=== PATIENT | male | born 1955 | race Caucasian/White ===

== ENCOUNTER 2017-09-30 01:17 | Emergency (ER) | payer OTHER ==
[~2017-09-30] VITALS: Ht 182.9 cm; Wt 113.4 kg
[~2017-09-30 01:17] MED LIST: ASPI81EC; CIPR500 PO; CRUTCH USE; IBUP200 PO; IBUP600 PO; LISI20 PO; LISI5; METF500 PO; METO100 PO; NAPR500 PO; NITR.4SL; OXYACE5T PO; PRAV40 PO; RXOXYACE PO; TRADJENTA5 MG PO
[2017-09-30 01:54] LABS: BASOPHILS ABSOLUTE AUTO 0.06 K/mm3 (0.00-0.23); BASOPHILS PERCENT AUTO 0 % (0-2); EOSINOPHILS ABSOLUTE AUTO 0.18 K/mm3 (0.00-0.68); EOSINOPHILS PERCENT AUTO 1 % (0-6); Hematocrit 46.9 % (37.0-53.0); Hemoglobin 16.4 g/dL (13.5-17.5); IMMATURE GRAN ABSOLUTE AUTO 0.05 K/mm3 (0.00-0.10); IMMATURE GRAN PERCENT AUTO 0 % (0-1); LYMPHOCYTES ABSOLUTE AUTO 4.91 K/mm3 (0.84-5.20); LYMPHOCYTES PERCENT AUTO 37 % (21-46); MONOCYTES ABSOLUTE AUTO 0.92 K/mm3 (0.16-1.47); MONOCYTES PERCENT AUTO 7 % (4-13); Mean Corpuscular HGB 29.5 pg (26.0-34.0); Mean Corpuscular Volume 85 fL (80-100); Mean Platelet Volume 11.8 fL (9.1-12.4); NEUTROPHILS ABSOLUTE AUTO 7.34 K/mm3 (1.96-9.15); NEUTROPHILS PERCENT AUTO 55 % (41-73); Platelet Count 237 K/mm3 (150-400); RDW Coefficient Variation 13.9 % (11.7-14.2); RDW Standard Deviation 42.8 fL (35.1-46.3); Red Blood Cell Count 5.55 M/mm3 (4.30-5.90); White Blood Cell Count 13.46 K/mm3 (4.00-11.30)
[2017-09-30 02:08] LABS: Alanine Aminotransfer (ALT/SGP 51 U/L (12-78); Albumin, Blood 3.6 g/dL (3.4-5.0); Albumin/Globulin Ratio 0.8 (0.8-1.8); Alk Phos 76 U/L (50-136); Anion Gap 11 mmol/L (6-16); Aspartate Aminotrans (AST/SGOT 25 U/L (12-37); Bilirubin, Total 0.4 mg/dL (0.1-1.0); Blood Urea Nitrogen 32 mg/dL (8-24); Bun/Creatinine Ratio 24.8 (12.0-20.0); CO2, Blood 23 mmol/L (21-32); Calcium, Blood 9.2 mg/dL (8.5-10.1); Chloride, Blood 94 mmol/L (98-108); Creatinine, Blood 1.29 mg/dL (0.60-1.20); Globulin, Blood 4.3 g/dL (2.2-4.0); Glomerular Filtration Rate 60 (60-); Glucose, Blood 550 mg/dL (70-99); Magnesium, Blood 2.1 mg/dL (1.6-2.4); Potassium, Blood 4.6 mmol/L (3.5-5.5); Sodium, Blood 128 mmol/L (136-145); Total Protein, Blood 7.9 g/dL (6.4-8.2); Troponin I <0.015 ng/mL (0.000-0.040)
[2018-07-04] MEDS ORDERED: Metformin HCl1000 MG PO (04:19)
== END 2017-09-30 05:19 | disposition home or self-care (01) ==
LOC: ER 01:17
PROVIDERS: Emergency Medicine
DX: E11.65 Type 2 diabetes mellitus with hyperglycemia (principal); S00.83XA Contusion of other part of head, initial encounter; Z91.19 Patient's noncompliance with other medical treatment and regimen; R55 Syncope and collapse; E86.0 Dehydration; N28.9 Disorder of kidney and ureter, unspecified; W22.8XXA Striking against or struck by other objects, initial encounter; Z88.0 Allergy status to penicillin; Z88.2 Allergy status to sulfonamides; Z79.84 Long term (current) use of oral hypoglycemic drugs; Z79.899 Other long term (current) drug therapy
CPT/HCPCS: 36415; 70450; 80053; 82947; 83735; 83880; 84484; 85025; 93005; 93010; 96360; 99284; J1815; J7030

== ENCOUNTER 2018-10-17 13:20 | Emergency (ER) | payer OTHER ==
[~2018-10-17] VITALS: Ht 182.9 cm; Wt 113.4 kg
[~2018-10-17 13:20] MED LIST changes: +Metformin HCl1000 MG PO
== END 2018-10-17 14:15 | disposition home or self-care (01) ==
LOC: ER 13:20
DX: S00.03XA Contusion of scalp, initial encounter (principal); W22.8XXA Striking against or struck by other objects, initial encounter; Z88.0 Allergy status to penicillin; Z88.2 Allergy status to sulfonamides; E11.9 Type 2 diabetes mellitus without complications
CPT/HCPCS: 99283

== ENCOUNTER 2020-07-27 13:46 | Emergency (ER) | payer OTHER ==
[~2020-07-27] VITALS: Ht 182.9 cm; Wt 111.1 kg
[2020-07-27 14:22] LABS: BASOPHILS ABSOLUTE AUTO 0.05 K/mm3 (0.00-0.23); BASOPHILS PERCENT AUTO 0 % (0-2); EOSINOPHILS ABSOLUTE AUTO 0.09 K/mm3 (0.00-0.68); EOSINOPHILS PERCENT AUTO 1 % (0-6); Hematocrit 47.8 % (37.0-53.0); IMMATURE GRAN ABSOLUTE AUTO 0.07 K/mm3 (0.00-0.10); IMMATURE GRAN PERCENT AUTO 1 % (0-1); LYMPHOCYTES ABSOLUTE AUTO 2.69 K/mm3 (0.84-5.20); LYMPHOCYTES PERCENT AUTO 20 % (21-46); MONOCYTES ABSOLUTE AUTO 0.74 K/mm3 (0.16-1.47); MONOCYTES PERCENT AUTO 5 % (4-13); Mean Corpuscular HGB 28.8 pg (26.0-34.0); Mean Corpuscular HGB Conc 33.5 g/dL (31.5-36.5); Mean Corpuscular Volume 86 fL (80-100); Mean Platelet Volume 11.9 fL (9.1-12.4); NEUTROPHILS ABSOLUTE AUTO 9.95 K/mm3 (1.96-9.15); NEUTROPHILS PERCENT AUTO 73 % (41-73); Platelet Count 302 K/mm3 (150-400); RDW Standard Deviation 37.7 fL (35.1-46.3); Red Blood Cell Count 5.55 M/mm3 (4.30-5.90); White Blood Cell Count 13.59 K/mm3 (4.00-11.30)
[2020-07-27 14:43] LABS: Alanine Aminotransfer (ALT/SGP 31 U/L (12-78); Albumin/Globulin Ratio 0.6 (0.8-1.8); Alk Phos 78 U/L (50-136); Anion Gap 10 mmol/L (6-16); Aspartate Aminotrans (AST/SGOT 21 U/L (12-37); Bilirubin, Total 0.3 mg/dL (0.1-1.0); Blood Urea Nitrogen 19 mg/dL (8-24); Bun/Creatinine Ratio 15.3 (12.0-20.0); CO2, Blood 22 mmol/L (21-32); Calcium, Blood 8.8 mg/dL (8.5-10.1); Chloride, Blood 98 mmol/L (98-108); Creatinine, Blood 1.24 mg/dL (0.60-1.20); Glomerular Filtration Rate >60 (60-); Glucose, Blood 554 mg/dL (70-99); Potassium, Blood 4.6 mmol/L (3.5-5.5); Sodium, Blood 130 mmol/L (136-145)
[2020-07-27] MEDS ORDERED: Cleocin HCl150 MG PO (15:59)
[2020-07-27] MEDS ORDERED: METF500 PO (15:59)
== END 2020-07-27 16:26 | disposition home or self-care (01) ==
LOC: ER 13:46
PROVIDERS: Physician Assistant
DX: E11.621 Type 2 diabetes mellitus with foot ulcer (principal); L97.519 Non-pressure chronic ulcer of other part of right foot with unspecified severity; Z88.0 Allergy status to penicillin; Z88.2 Allergy status to sulfonamides
CPT/HCPCS: 36415; 80053; 83690; 85025; 99283

== ENCOUNTER 2021-04-10 20:19 | Inpatient (IN) | payer MEDICARE, OTHER ==
[~2021-04-10] VITALS: Ht 188 cm; Wt 107.6 kg
[~2021-04-10 20:19] MED LIST changes: +Cleocin HCl150 MG PO
[2021-04-10 21:00] LABS: BASOPHILS ABSOLUTE AUTO 0.04 K/mm3 (0.00-0.23); BASOPHILS PERCENT AUTO 0 % (0-2); EOSINOPHILS ABSOLUTE AUTO 0.14 K/mm3 (0.00-0.68); EOSINOPHILS PERCENT AUTO 1 % (0-6); Hematocrit 46.3 % (37.0-53.0); Hemoglobin 15.8 g/dL (13.5-17.5); IMMATURE GRAN ABSOLUTE AUTO 0.02 K/mm3 (0.00-0.10); IMMATURE GRAN PERCENT AUTO 0 % (0-1); LYMPHOCYTES ABSOLUTE AUTO 2.94 K/mm3 (0.84-5.20); LYMPHOCYTES PERCENT AUTO 28 % (21-46); MONOCYTES ABSOLUTE AUTO 0.81 K/mm3 (0.16-1.47); MONOCYTES PERCENT AUTO 8 % (4-13); Mean Corpuscular HGB 29.6 pg (26.0-34.0); Mean Corpuscular HGB Conc 34.1 g/dL (31.5-36.5); Mean Corpuscular Volume 87 fL (80-100); Mean Platelet Volume 12.1 fL (9.1-12.4); NEUTROPHILS ABSOLUTE AUTO 6.47 K/mm3 (1.96-9.15); NEUTROPHILS PERCENT AUTO 62 % (41-73); Platelet Count 212 K/mm3 (150-400); RDW Coefficient Variation 13.1 % (11.7-14.2); RDW Standard Deviation 41.1 fL (35.1-46.3); Red Blood Cell Count 5.34 M/mm3 (4.30-5.90); White Blood Cell Count 10.42 K/mm3 (4.00-11.30)
[2021-04-10 21:12] LABS: Prothrombin Time Results 10.8 Sec (9.7-11.5)
[2021-04-10] MEDS ORDERED: NEURONTIN300 MG PO (21:19)
[2021-04-10] MEDS ORDERED: EASY TOUCH (21:20)
[2021-04-10] MEDS ORDERED: FENOFIBRATE145 MG PO (21:20)
[2021-04-10] MEDS ORDERED: ROSUVASTATIN CA10 MG PO (21:20)
[2021-04-10 21:21] LABS: Alanine Aminotransfer (ALT/SGP 32 U/L (12-78); Albumin, Blood 3.3 g/dL (3.4-5.0); Albumin/Globulin Ratio 0.8 (0.8-1.8); Alk Phos 46 U/L (50-136); Anion Gap 8 mmol/L (6-16); Aspartate Aminotrans (AST/SGOT 16 U/L (12-37); Bilirubin, Total 0.4 mg/dL (0.1-1.0); Blood Urea Nitrogen 28 mg/dL (8-24); Bun/Creatinine Ratio 16.7 (12.0-20.0); CO2, Blood 24 mmol/L (21-32); Chloride, Blood 102 mmol/L (98-108); Creatinine, Blood 1.68 mg/dL (0.60-1.20); Ethanol (Alcohol), Blood, Med <3 mg/dL; Globulin, Blood 3.9 g/dL (2.2-4.0); Glomerular Filtration Rate 41 (60-); Glucose, Blood 445 mg/dL (70-99); Potassium, Blood 4.3 mmol/L (3.5-5.5); Sodium, Blood 134 mmol/L (136-145); Total Protein, Blood 7.2 g/dL (6.4-8.2)
[2021-04-10 21:26] LABS: U Amphetamine Screen Not Detected; U Barbituate Screen Not Detected; U Benzodiazapine Screen Not Detected; U Buprenorphine Screen Not Detected; U Cannabinoids Screen Not Detected; U Cocaine Screen Not Detected; U Methadone Screen Not Detected; U Methamphetamine Screen Not Detected; U Opiates Screen Not Detected; U Oxycodone Screen Not Detected; U Phencyclidine Screen Not Detected; U Propoxyphene Screen Not Detected
[2021-04-10] MEDS ORDERED: ASPI81CH PO (21:34)
[2021-04-11 00:33] LABS: CPK Creatine Kinase 97 U/L (39-308); Troponin I <0.015 ng/mL (0.000-0.040)
--- NOTE | 2021-04-11 02:21 | NUR ---
ASSUMED CARE PT ARRIVED AT APPROX 0100. PT WAS LETHARGIC WITH SLOW RESPONSE WITH LITTLE MOVEMENT. VITALS ARE STABLE AND ON 4L NC WITH SATS ABOVE 97%. DRAPER IN PLACE AND DRAINING TO GRAVITY. CALL LIGHT IS WITHIN REACH. CHUCK CONTINUE TO MONITOR.
[2021-04-11 03:08] LABS: Source, Urine Catheter
[2021-04-11 03:11] LABS: Appearance, Urine Clear (Clear); Bilirubin, Urine Neg (Neg); Blood, Urine Neg (Neg); Color, Urine Yellow (P-Yellow); Glucose Qualitative, Urine 4+ (Neg); Ketones, Urine Neg (Neg); Leukocyte Esterase, Urine Neg (Neg); Nitrite, Urine Neg (Neg); Protein, Urine Neg (Neg); Urobilinogen, Urine NORM (Normal)
[2021-04-11 04:38] LABS: Bun/Creatinine Ratio 17.7 (12.0-20.0); Calcium, Blood 9.1 mg/dL (8.5-10.1); Creatinine, Blood 1.47 mg/dL (0.60-1.20); Potassium, Blood 4.2 mmol/L (3.5-5.5)
[2021-04-11 04:51] LABS: Hematocrit 46.7 % (37.0-53.0); Hemoglobin 15.8 g/dL (13.5-17.5); Mean Corpuscular HGB Conc 33.8 g/dL (31.5-36.5); Mean Corpuscular Volume 89 fL (80-100); Mean Platelet Volume 12.2 fL (9.1-12.4); Platelet Count 190 K/mm3 (150-400); RDW Coefficient Variation 13.1 % (11.7-14.2); RDW Standard Deviation 42.5 fL (35.1-46.3); Red Blood Cell Count 5.27 M/mm3 (4.30-5.90); White Blood Cell Count 10.96 K/mm3 (4.00-11.30)
--- NOTE | 2021-04-11 06:35 | NUR ---
SHIFT SUMMARY PT HAS BEEN LETHARGIC WITH LITTLE RESPONSE SINCE ARRIVAL. ED REPORTED AGITATION, COMBATIVNESS AND UNDIRECTIBLE ACTIVITY. AT 0600 PT STATED NAME BUT DID NOT OPEN EYES OR FOLLOW ANY COMMANDS OTHER THAN WHEN ASKED NAME. DRAPER IS IN PLACE AND DRAINING TO GRAVITY. IV FLUIDS INFUSING. VITALS ARE STABLE AND ON 2L NC WITH SATS ABOVE 95%. CALL LIGHT IS WITHIN REACH. BED ALARM ON.
[2021-04-11] MEDS ORDERED: GLIP5 PO (15:10)
--- NOTE | 2021-04-11 17:45 | NUR ---
TRANSFER NOTE ASSUMED CARE OF PATIENT AT APPROX 0700. PT RESPOND TO VERBAL/TACTILE STIMULI, ANBLE TO SAY NAME AND ; UNABLE TO ANSWER OTHER QUESTIONS HE QUICKLY FALLS BACK TO SLEEP. PUPILS R:2, L:3, NO RESPONSE TO LIGHT. RUE MINIMAL MOVEMENT NOTED, WEAK DELAYED SKIN TOGGLER; NO PURPOSEFUL MOVEMENT TO RLE. THIS EVEING PT ALERT, ORIENTED TO PERSON, PLACE AND EVENT; STATES APR 2023 FOR DATE. NO S/SX OF DISTRESS NOTED T/O SHIFT. PT DENIES PAIN, CHEST PAIN, NAUSEA AND DIZZINESS. MRI FORM COMPLETED WITH INFORMATION FROM SON MASON, DAUGHTER MEAGAN AND LIFE PARTNER ANDREA. VSS. NO OTHER ACUTE CHANGES NOTED. REPORT GIVEN TO MAEGAN TRAN ASSUMING CARE OF PATIENT. PT TRANSFERED TO ROOM 353 AT APPROX 1745.
--- NOTE | 2021-04-11 18:05 | NUR ---
SHIFT SUMMARY PT TRANSFERRED TO THIS UNIT FROM PCU ROOM 9. PT AAO TO SELF AND SITUATION, RECEIVED REPORT FROM MAEGAN CUMMINGS. PT TRANSPORTED VIA BED. PATIENT APPEARS LETHARGIC. ABLE TO FOLLOW SIMPLE DIRECTIONS FROM STAFF. NO C/O PAIN OR ANY DISCOMFORT. APPEARS COMFORTABLE IN BED AT THIS TIME. BED AT LOWEST POSITION W/ ALARM ON. CALL LIGHT WITHIN REACH.
--- NOTE | 2021-04-11 22:32 | NUR ---
FAMILY COMMUNICATION *LATE ENTRY* PT ABLE TO GIVE VERBAL PERMISSION TO SPEAK TO JESSICA BRONSON ABOUT HIS CARE & CURRENT HEALTH SITUATION. CALLED JESSICA BRONSON BACK @[phone] & UPDATED HER ON PTS CURRENT STATUS. SHE STATED AMY STARKS & AINSLEY MARINO ARE PTS POA'S.
--- NOTE | 2021-04-12 05:17 | NUR ---
SHIFT SUMMARY AOX4 @BEGINNING OF SHIFT, A LITTLE FORGETFUL THIS AM-UNAWARE SITUATION OR YR. OTHERWISE RESPONDS CORRECTLY TO ALL QUESTIONS. HAS GARBLED SLOW SPEECH. L FACIAL DROOP. REPORTS BLURRY VISION, PUPILS UNEQUAL-R 2MM & L 4MM, PUPILS NON-RESPONSIVE TO LIGHT, SCLERA VERY RED, EYE LIDS RED & SWOLLEN LOOKING. ABLE TO SEE CORRECT COLOR OF GLOVE & HOW MANY FINGERS BEING HELD UP. FOLLOWS DIRECTIONS. EQUAL ENGINEERING SUPPLIES SALES/STRENGTH. REPORTS FEELING VERY TIRED. VSS. TELE AFIB @77. DRAPER PATENT & DRAINING JUDY COLOR URINE. NPO FOR SPEECH EVAL TODAY. CALL LIGHT IN REACH. WCTM.
--- NOTE | 2021-04-12 16:50 | NUR ---
SHIFT SUMMARY PT A&Ox4 THIS SHIFT, FOLLOWS COMMANDS. PT STILL REPORTS BLURRY VISION, PUPILS REMAIN UNEQUAL AND UNRESPONSIVE TO LIGHT, LEAD NUCLEAR MEDICINE TECHNOLOGIST EQAUL BILATERALLY. ABLE TO SWALLOW AND IS TOLERATING PO MEDS AND ORAL INTAKE WELL. NEURO CONSULT CALLED IN, RN SPOKE c PHYSICIAN DIRECTLY. PT IS NOW 2 ASSIST c FWW AND GB PER PT/OT. BARON PATENT AND DRAINING. TELE - AFIB @ 78 c BBB. PT IS CURRENTLY LYING IN BED, CALL LIGHT IN REACH AND BED ALARM ON. CALLS APPROPRIATELY OCCASIONALLY.
--- NOTE | 2021-04-13 00:06 | NUR ---
PATIENT SLEEPING IN BED, EASILY AROUSABLE TO VOICE, INCONTINENT BOWEL EPISODE, DRAPER CATETHER PATENT AND CATHETER CARE PERFORMED, PATIENT IS ALERT TO SELF, PLACE, SITUATION NEGATIVE TO TIME, YEAR "2000", RIGHT EYE PINPOINT FIX, LEFT EYE +2 SLUGGISH WITH NOTED DIFFICULTY KEEPING EYE OPEN, SCALERA REDDENED BILATERALY, GARBLED SPEECH ON FIRST AWAKENING BECAME MORE CLEAR SLURRED WITH WORD FINDING, RIGHT UPPER EXTREMITY WEAKNESS TO PROPERTY OFFICER PUSHES AND PULLS, NO DRIFTS NOTED X 4 EXTREMITIES, ABLE TO FOLLOW COMMANDS WITH A RIGHT SIDED FACIAL DROOP. WILL CONTINUE TO MONITOR.
--- NOTE | 2021-04-13 04:21 | NUR ---
PATIENT EXHIBITING SIGNS OF AGITATION AT TIMES, UNWILLING TO FOLLOW COMMANDS, PATIENT ROLLS TO SIDE TO SIDE, PULLING AT LINES AND DRAPER CATHETER, PULLED OUT PIV WITH LR RUNNING, NOTED SLIGHT INFILTRATION AT THE RFA SITE, MONITORING. NEW PIV INSERTED 20 GAUGE IN LFA, DRAPER CATHETER INTACT, PATENT AND STAT LOCK IN PLACE.
--- NOTE | 2021-04-13 07:12 | NUR ---
PATIENT AROUND 0630 STARTED GETTING VERY RESTLESS PULLING AT HIS TELEMETRY, CALLED CHARGE TO HAVE PATIENT PUT ON DELEON AND REDIRECTING HIM, AFTER CALL BED ALARM CAME ON, PATIENT WAS STANDING AT THE EDGE OF BED FACING DOOR HEAD FORWARD UNSTEADY COMING TOWARDS ME, IV WAS PULLED OUT, DRAPER CATHETER STILL ATTACKED TO BED, PATIENT HAD ONE HAND ON HIS CATHETER PULLING IT, PATIENT REFUSED TO SIT ON BED, PHYSICALLY AGGRESSIVE AND VERBALLY " YOU BITCH, THIS IS BULLSHIT, THIS IS BULLSHIT' I CALLED SECURITY WHILE I WAS HOLDING THE PATIENT BY THE SHOULDERS TO KEEP HIM FROM FALLING FORWARD ONTO FLOOR, YELLED FOR STAFF ASSIST, PATIENT HAS NEW ORDERS TO REMOVE DRAPER, DC LACTAID RINGERS, HAROLDO AND BILATERAL WRIST RESTRAINTS AND NEW ORDERS TO FOLLOW TO HELP WITH AGITATION.
[2021-04-13 08:51] LABS: Anion Gap 7 mmol/L (6-16); Blood Urea Nitrogen 19 mg/dL (8-24); Bun/Creatinine Ratio 16.2 (12.0-20.0); CO2, Blood 25 mmol/L (21-32); Calcium, Blood 9.2 mg/dL (8.5-10.1); Chloride, Blood 104 mmol/L (98-108); Creatinine, Blood 1.17 mg/dL (0.60-1.20); Glomerular Filtration Rate >60 (60-); Glucose, Blood 252 mg/dL (70-99); Potassium, Blood 4.2 mmol/L (3.5-5.5); Sodium, Blood 136 mmol/L (136-145)
--- NOTE | 2021-04-13 18:43 | NUR ---
SHIFT SUMMARY PT OUT OF RESTRAINTS BY 0930 THIS MORNING. HAS BEEN PLEASANT AND COOPERATIVE THROUGHOUT DAY. BED ALARM ON AND HAS GOTTEN OUT OF BED TO USE RESTROOM AND NEEDS REMINDING TO USE CALL BUTTON. 1 PERSON ASSIST WITH AMBULATING USING FWW. S.O. AT BEDSIDE FOR SHORT TIME TODAY.
--- NOTE | 2021-04-13 23:33 | NUR ---
2200 PT LYING IN BED, EYES CLOSED, APPEARS TO BE RESTING. BREATHING IS EVEN, UNLABORED. NO APPARENT SIGNS OF DISTRESS. CALL LIGHT IS IN REACH.
--- NOTE | 2021-04-13 23:33 | NUR ---
1935 PT LYING IN BED, AAO X 4 AT THIS TIME. DENIES ANY DISCOMFORT AT THIS TIME. NO APPARENT SIGNS OF DISTRESS. CALL LIGHT IS IN REACH. BED ALARM IS ON.
--- NOTE | 2021-04-13 23:34 | NUR ---
PT LYING IN BED, EYES CLOSD, APPEARS TO BE RESTING. BREATHING IS EVEN, UNLABORED. NO APPARENT SIGNS OF DISTRESS. CALL LIGHT IS IN REACH.
--- NOTE | 2021-04-14 01:56 | NUR ---
PT LYING IN BED, EYES CLOSED, APPEARS TO BE RESTING. BREATHING IS EVEN, UNLABORED. ON APPARENT SIGNS OF DISTRESS. CALL LIGHT IS IN REACH. BED ALARM IS ON.
--- NOTE | 2021-04-14 03:31 | NUR ---
PT REFUSING TO WEAR TELE MONITOR. SPOKE WITH TECHNOLOGY EDUCATION TEACHER, PT HAS A RATE OF BBB WITH AFIB, NO EVENTS OVER THE LAST 24 HOURS, SPOKE WITH DR TIPTON, OK TO DC TELE. PT IS VERY HAPPY ABOUT THIS. NO OTHER APPARENT SIGNS OF DISTRESS. CALL LIGHT IS IN REACH. BED ALARM IS ON.
--- NOTE | 2021-04-14 03:33 | NUR ---
PT IS AAO X 4, OCC CONF AT NIGHT. ON RA. BS WAS 209, TELE WAS BBB WITH AFIB.
--- NOTE | 2021-04-14 04:51 | NUR ---
SED ALL ITEMS TO BE PUT BACK ON. RN NOTIFIED
--- NOTE | 2021-04-14 05:31 | NUR ---
PT LYING IN BED, EYES CLOSED, APPEARS TO BE RESTING. BREATHING IS EVEN, UNLABORED. NO APPARENT SIGNS OF DISTRESS. CALL LIGHT IS IN REACH. BED ALARM IS ON. NO OTHER CHANGES THIS SHIFT.
[2021-04-14 09:23] LABS: Bun/Creatinine Ratio 16.1 (12.0-20.0); Calcium, Blood 9.3 mg/dL (8.5-10.1); Creatinine, Blood 1.37 mg/dL (0.60-1.20); Potassium, Blood 4.2 mmol/L (3.5-5.5)
--- NOTE | 2021-04-14 19:39 | NUR ---
no iv, call light in reach, asked for treat during bsr, pt has requested to go home instead of snf
--- NOTE | 2021-04-15 03:07 | NUR ---
SHIFT SUMMARY PT DROWSY MOST OF THE SHIFT. STAFF OFFERED ASSISTANCE WITH FOOD, FLUID AND TOILETING, WHICH PT DECLINED. PERIPHERAL PULSES STRONG. PT AMBULATES WITH WALKER AND GAIT BELT. LUNG SOUNDS CLEAR ON ROOM AIR. DENIES HEADACHE OR VISUAL CHANGES. CALL LIGHT WITHIN REACH, WILL CONTINUE TO MONITOR.
--- NOTE | 2021-04-15 04:10 | NUR ---
CORRESPONDENCE WITH PHYSICIAN PLACED PHONE CALL TO DR ODOM TO REQUEST ORDER FOR NO IV ACCESS. PT REMOVED HIS OWN IV ON 04/14/21, HE IS NOT RECEIVING ANY MEDS VIA IV. WILL UPDATE ORDERS.
[2021-04-15] MEDS ORDERED: LISI20 PO (12:10)
[2021-04-15] MEDS ORDERED: XARELTO20 MG PO (12:11)
--- NOTE | 2021-04-15 15:01 | NUR ---
discharged: home with family, warned by pt and staff that this would not be a optimal discharge, dr had caregiver come in to be shown/trained how to help pt transfer and use walker, cg admited to pt that she thought it might be difficult but pt insisted on leaving, staff reiterated challenges, assisted pt to family vehicle, reviewed dc instructions, reminded pt to make an appointment with pcp, they agreed to do so, restated the reasons for the appointment
[2021-05-19] MEDS ORDERED: PROBIOTIC PO (16:13)
== END 2021-04-15 14:55 | disposition home health service (06) | DRG 64 ==
LOC: ER 20:19 → PCU 20:20 → MEDS 04-11 17:53
PROVIDERS: Emergency Medicine; Family Medicine; ADMIT Internal Medicine
DX: I63.10 Cerebral infarction due to embolism of unspecified precerebral artery (principal); G92 Toxic encephalopathy; N17.9 Acute kidney failure, unspecified; G81.91 Hemiplegia, unspecified affecting right dominant side; R29.810 Facial weakness; H53.2 Diplopia; E11.42 Type 2 diabetes mellitus with diabetic polyneuropathy; E78.5 Hyperlipidemia, unspecified; I10 Essential (primary) hypertension; I48.91 Unspecified atrial fibrillation; Z95.2 Presence of prosthetic heart valve; Z79.01 Long term (current) use of anticoagulants; Z98.890 Other specified postprocedural states; Z79.84 Long term (current) use of oral hypoglycemic drugs; Z79.899 Other long term (current) drug therapy; Z88.0 Allergy status to penicillin; Z88.2 Allergy status to sulfonamides; Z79.82 Long term (current) use of aspirin
CPT/HCPCS: 36415; 51702; 70450; 70544; 70551; 71045; 76770; 80048; 80053; 81003; 82550; 82947; 84484; 85025; 85027; 85610; 92526; 92610; 93005; 93010; 93306; 96372; 97110; 97116; 97162; 97165; 97530; 97535; 99285-25; A9270; G0378; G0480; J1650; J7120

== ENCOUNTER 2021-05-17 20:24 | Inpatient (IN) | payer OTHER ==
[~2021-05-17] VITALS: Ht 182.9 cm; Wt 103.9 kg
[~2021-05-17 20:24] MED LIST changes: +ASPI81CH PO; +EASY TOUCH; +FENOFIBRATE145 MG PO; +GLIP5 PO; +NEURONTIN300 MG PO; +ROSUVASTATIN CA10 MG PO; +XARELTO20 MG PO
[2021-05-17] MEDS ORDERED: CELEXA10 MG PO (20:57)
[2021-05-17 21:25] LABS: BASOPHILS ABSOLUTE AUTO 0.03 K/mm3 (0.00-0.23); BASOPHILS PERCENT AUTO 0 % (0-2); EOSINOPHILS PERCENT AUTO 2 % (0-6); Hematocrit 49.1 % (37.0-53.0); Hemoglobin 16.4 g/dL (13.5-17.5); IMMATURE GRAN ABSOLUTE AUTO 0.02 K/mm3 (0.00-0.10); IMMATURE GRAN PERCENT AUTO 0 % (0-1); LYMPHOCYTES ABSOLUTE AUTO 3.47 K/mm3 (0.84-5.20); LYMPHOCYTES PERCENT AUTO 34 % (21-46); MONOCYTES ABSOLUTE AUTO 0.63 K/mm3 (0.16-1.47); MONOCYTES PERCENT AUTO 6 % (4-13); Mean Corpuscular HGB 29.3 pg (26.0-34.0); Mean Corpuscular HGB Conc 33.4 g/dL (31.5-36.5); Mean Corpuscular Volume 88 fL (80-100); NEUTROPHILS ABSOLUTE AUTO 5.91 K/mm3 (1.96-9.15); NEUTROPHILS PERCENT AUTO 58 % (41-73); Platelet Count 169 K/mm3 (150-400); RDW Coefficient Variation 13.3 % (11.7-14.2); Red Blood Cell Count 5.59 M/mm3 (4.30-5.90); White Blood Cell Count 10.26 K/mm3 (4.00-11.30)
[2021-05-17 21:46] LABS: Alanine Aminotransfer (ALT/SGP 42 U/L (12-78); Albumin, Blood 3.3 g/dL (3.4-5.0); Albumin/Globulin Ratio 0.8 (0.8-1.8); Alk Phos 34 U/L (50-136); Anion Gap 4 mmol/L (6-16); Aspartate Aminotrans (AST/SGOT 38 U/L (12-37); Bilirubin, Total 0.4 mg/dL (0.1-1.0); Blood Urea Nitrogen 115 mg/dL (8-24); Bun/Creatinine Ratio 23.8 (12.0-20.0); CO2, Blood 24 mmol/L (21-32); Calcium, Blood 8.9 mg/dL (8.5-10.1); Chloride, Blood 106 mmol/L (98-108); Creatinine, Blood 4.83 mg/dL (0.60-1.20); Globulin, Blood 4.3 g/dL (2.2-4.0); Glomerular Filtration Rate 12 (60-); Glucose, Blood 116 mg/dL (70-99); Potassium, Blood 5.6 mmol/L (3.5-5.5); Sodium, Blood 134 mmol/L (136-145); Total Protein, Blood 7.6 g/dL (6.4-8.2); Troponin I <0.015 ng/mL (0.000-0.040)
[2021-05-18 00:09] LABS: Phosphorus, Blood 4.3 mg/dL (2.5-4.9)
--- NOTE | 2021-05-18 00:35 | NUR ---
REPORT RECEIVED FROM PRAVEENED RN. PT TRANSPORTED TO MEDICAL FLOOR VIA GURNEY, SLIDE TRANSFERRED TO BED WITH ASSIST OF 4 AND SLIDE SHEET. VS OBTAINED, HYPOTENSIVE, OTHER VS WNL. PT A&OX4, PLEASANT AND ANSWERS QUESTIONS APPROPRIATELY. ORIENTED TO ROOM/UNIT. NO OTHER ACUTE NEEDS ASSESSED AT THIS TIME. CALL LIGHT AND POSSESSIONS IN REACH, BED IN LOW AND LOCKED POSITION WITH ALARMS ON.
--- NOTE | 2021-05-18 03:06 | NUR ---
SPOKE TO DR. ROE REGARDING PT'S ONGOING HYPOTENSION AND LETHARGY. ORDERS RECEIVED. CONTINUE TO MONITOR.
[2021-05-18 03:35] LABS: BASOPHILS ABSOLUTE AUTO 0.03 K/mm3 (0.00-0.23); BASOPHILS PERCENT AUTO 0 % (0-2); EOSINOPHILS ABSOLUTE AUTO 0.25 K/mm3 (0.00-0.68); EOSINOPHILS PERCENT AUTO 3 % (0-6); Hematocrit 43.5 % (37.0-53.0); Hemoglobin 14.6 g/dL (13.5-17.5); IMMATURE GRAN ABSOLUTE AUTO 0.02 K/mm3 (0.00-0.10); IMMATURE GRAN PERCENT AUTO 0 % (0-1); LYMPHOCYTES PERCENT AUTO 33 % (21-46); MONOCYTES ABSOLUTE AUTO 0.68 K/mm3 (0.16-1.47); MONOCYTES PERCENT AUTO 7 % (4-13); Mean Corpuscular HGB 29.6 pg (26.0-34.0); Mean Corpuscular HGB Conc 33.6 g/dL (31.5-36.5); Mean Corpuscular Volume 88 fL (80-100); Mean Platelet Volume 12.4 fL (9.1-12.4); NEUTROPHILS ABSOLUTE AUTO 5.33 K/mm3 (1.96-9.15); NEUTROPHILS PERCENT AUTO 57 % (41-73); Platelet Count 131 K/mm3 (150-400); RDW Coefficient Variation 13.3 % (11.7-14.2); RDW Standard Deviation 43.3 fL (35.1-46.3); Red Blood Cell Count 4.93 M/mm3 (4.30-5.90); White Blood Cell Count 9.41 K/mm3 (4.00-11.30)
[2021-05-18 03:53] LABS: Albumin, Blood 2.7 g/dL (3.4-5.0); Albumin/Globulin Ratio 0.8 (0.8-1.8); Bilirubin, Total 0.2 mg/dL (0.1-1.0); Bun/Creatinine Ratio 25.4 (12.0-20.0); Calcium, Blood 8.4 mg/dL (8.5-10.1); Creatinine, Blood 4.1 mg/dL (0.60-1.20); Globulin, Blood 3.4 g/dL (2.2-4.0); Potassium, Blood 4.9 mmol/L (3.5-5.5); Total Protein, Blood 6.1 g/dL (6.4-8.2)
[2021-05-18 04:37] LABS: Source, Urine Catheter
[2021-05-18 04:41] LABS: Bilirubin, Urine Neg (Neg); Blood, Urine 5+ (Neg); Glucose Qualitative, Urine Neg (Neg); Ketones, Urine Neg (Neg); Leukocyte Esterase, Urine 3+ (Neg); Nitrite, Urine Neg (Neg); Protein, Urine 1+ (Neg); Specific Gravity, Urine 1.015 (1.003-1.022); Urobilinogen, Urine NORM (Normal)
[2021-05-18 04:45] LABS: Appearance, Urine Hazy (Clear); Color, Urine Pale Yellow (P-Yellow)
[2021-05-18 04:52] LABS: U Amphetamine Screen Not Detected; U Barbituate Screen Not Detected; U Benzodiazapine Screen Not Detected; U Buprenorphine Screen Not Detected; U Cannabinoids Screen Not Detected; U Cocaine Screen Not Detected; U Methadone Screen Not Detected; U Methamphetamine Screen Not Detected; U Opiates Screen Not Detected; U Oxycodone Screen Not Detected; U Phencyclidine Screen Not Detected; U Propoxyphene Screen Not Detected
[2021-05-18 05:00] LABS: Bacteria Many /hpf; Red Blood Cells, Urine 0-2 /hpf (0-2); Squamous Epithelial Cells Not Seen /hpf (Few); White Blood Cells, Urine TNTC /hpf (0-5)
--- NOTE | 2021-05-18 05:45 | NUR ---
SHIFT SUMMARY PT RESTING COMFORTABLY, IN NAD. APPEARS INCREASINGLY ALERT, OPENS EYES AND CONVERSES SPONTANEOUSLY. VS REVIEWED, BP'S STABLE, OTHER VS WNL. TELE REPORTED FEW OCCASIONS OF HR DROPPING INTO 30'S, PT ASYMPTOMATIC. NO OTHER ACUTE CHANGES OR CONCERNS TO REPORT OVERNIGHT. DENIES NEEDS AT THIS TIME. CALL LIGHT, POSSESSIONS IN REACH, BED IN LOW AND LOCKED POSITION WITH ALARMS ON. WILL REPORT OFF TO ONCOMING RN.
--- NOTE | 2021-05-18 18:42 | NUR ---
PATIENT IS ALERT AND ORIENTED AND COOPERATIVE WITH CARE. RIGHT SIDE DEFICIT. ON RA. NEEDS HELP SETTING UP MEAL TRAYS. NO C/O PAIN. WILL CONTINUE TO MONITOR
--- NOTE | 2021-05-18 19:00 | NUR ---
ASSUMED CARE RECEIVED REPORT FROM MAEGAN SHETTY. PT RESTING, IN NAD. NO ACUTE NEEDS ASSESSED AT THIS TIME. CALL LIGHT, POSSESSIONS IN REACH, BED IN LOW AND LOCKED POSITION. IVF INFUSING ORDERED.
[2021-05-19 05:34] LABS: BASOPHILS ABSOLUTE AUTO 0.02 K/mm3 (0.00-0.23); BASOPHILS PERCENT AUTO 0 % (0-2); EOSINOPHILS PERCENT AUTO 3 % (0-6); Hematocrit 38.5 % (37.0-53.0); Hemoglobin 13.1 g/dL (13.5-17.5); IMMATURE GRAN ABSOLUTE AUTO 0.01 K/mm3 (0.00-0.10); IMMATURE GRAN PERCENT AUTO 0 % (0-1); LYMPHOCYTES PERCENT AUTO 28 % (21-46); MONOCYTES ABSOLUTE AUTO 0.54 K/mm3 (0.16-1.47); MONOCYTES PERCENT AUTO 8 % (4-13); Mean Corpuscular HGB 29.6 pg (26.0-34.0); Mean Corpuscular Volume 87 fL (80-100); Mean Platelet Volume 12.6 fL (9.1-12.4); NEUTROPHILS ABSOLUTE AUTO 4.26 K/mm3 (1.96-9.15); NEUTROPHILS PERCENT AUTO 61 % (41-73); Platelet Count 137 K/mm3 (150-400); RDW Coefficient Variation 13.4 % (11.7-14.2); RDW Standard Deviation 42.8 fL (35.1-46.3); Red Blood Cell Count 4.43 M/mm3 (4.30-5.90); White Blood Cell Count 7.03 K/mm3 (4.00-11.30)
[2021-05-19 06:11] LABS: Albumin, Blood 2.5 g/dL (3.4-5.0); Albumin/Globulin Ratio 0.7 (0.8-1.8); Bilirubin, Total 0.6 mg/dL (0.1-1.0); Bun/Creatinine Ratio 23.7 (12.0-20.0); Calcium, Blood 7.4 mg/dL (8.5-10.1); Creatinine, Blood 2.57 mg/dL (0.60-1.20); Globulin, Blood 3.4 g/dL (2.2-4.0); Potassium, Blood 5.1 mmol/L (3.5-5.5); Total Protein, Blood 5.9 g/dL (6.4-8.2)
--- NOTE | 2021-05-19 07:00 | NUR ---
SHIFT SUMMARY PT RESTING, IN NAD. NO ACUTE CONCERNS TO REPORT OVERNIGHT. VS REVIEWED,WNL. NO CARDIAC EVENTS REPORTED OVERNIGHT. A&OX3, FORGETFUL AT TIMES; CALLS OUT FOR GIRLFRIEND; RE-ORIENTED TO PLACE. APPEARED TO SLEEP WELL OVERNIGHT. NO ACUTE NEEDS ASSESSED AT THIS TIME. CALL LIGHT, POSSESSIONS IN REACH, BED IN LOW AND LOCKED POSITION WITH ALARMS ON. REPORT GIVEN TO MAEGAN SHETTY.
[2021-05-19 12:28] LABS: Bun/Creatinine Ratio 23.2 (12.0-20.0); Calcium, Blood 7.9 mg/dL (8.5-10.1); Creatinine, Blood 2.46 mg/dL (0.60-1.20); Potassium, Blood 5.2 mmol/L (3.5-5.5)
[2021-05-19] MEDS ORDERED: VISBIOME 112.51 EACH PO (16:13)
[2021-05-19] MEDS ORDERED: CEFD300 PO (16:14)
--- NOTE | 2021-05-19 19:12 | NUR ---
PATIENT IS ALERT AND ORIENTED AND COOPERATIVE WITH CARE. RIGHT SIDE DEFICITS. USES THE URINAL. PATIENT HAS A GOOD APPETITE. NO ACUTE CONCERNS TODAY. WILL CONTINUE TO MONITOR
--- NOTE | 2021-05-20 04:12 | NUR ---
SHIFT SUMMARY NO ACUTE CHANGES THIS SHIFT, MEDICATED 1X (TYLENOL) FOR C/O LEG PAIN 05/19, SLEEPING AT REASSESSMENT, NO OTHER C/O ANY KIND, SLEPT T/O THE NIGHT & SLEEPING AT THIS TIME, CALL LIGHT IN REACH, WILL CONT TO MONITOR UNTIL REPORT GIVEN TO DAY RN.
[2021-05-20 05:36] LABS: BASOPHILS ABSOLUTE AUTO 0.03 K/mm3 (0.00-0.23); BASOPHILS PERCENT AUTO 0 % (0-2); EOSINOPHILS ABSOLUTE AUTO 0.27 K/mm3 (0.00-0.68); EOSINOPHILS PERCENT AUTO 4 % (0-6); Hematocrit 41.2 % (37.0-53.0); Hemoglobin 13.9 g/dL (13.5-17.5); IMMATURE GRAN ABSOLUTE AUTO 0.01 K/mm3 (0.00-0.10); IMMATURE GRAN PERCENT AUTO 0 % (0-1); LYMPHOCYTES ABSOLUTE AUTO 2.25 K/mm3 (0.84-5.20); LYMPHOCYTES PERCENT AUTO 30 % (21-46); MONOCYTES ABSOLUTE AUTO 0.62 K/mm3 (0.16-1.47); MONOCYTES PERCENT AUTO 8 % (4-13); Mean Corpuscular HGB 29.6 pg (26.0-34.0); Mean Corpuscular HGB Conc 33.7 g/dL (31.5-36.5); Mean Corpuscular Volume 88 fL (80-100); NEUTROPHILS ABSOLUTE AUTO 4.23 K/mm3 (1.96-9.15); NEUTROPHILS PERCENT AUTO 57 % (41-73); Platelet Count 152 K/mm3 (150-400); RDW Coefficient Variation 13.4 % (11.7-14.2); RDW Standard Deviation 43.2 fL (35.1-46.3); Red Blood Cell Count 4.69 M/mm3 (4.30-5.90); White Blood Cell Count 7.41 K/mm3 (4.00-11.30)
[2021-05-20 06:08] LABS: Bun/Creatinine Ratio 21.2 (12.0-20.0); Calcium, Blood 8.7 mg/dL (8.5-10.1); Creatinine, Blood 2.17 mg/dL (0.60-1.20); Potassium, Blood 5.1 mmol/L (3.5-5.5)
[2021-05-20] MEDS ORDERED: NIFE30ER PO (13:58)
[2021-05-20] MEDS ORDERED: DOCU100 PO (14:01)
--- NOTE | 2021-05-20 15:32 | NUR ---
DC NOTE: PT A/O X 3 ON DISCHARGE. DC INSTRUCTIONS PROVIDED BY KRISSY NOBLES RN. PT ESCORTED TO POV VIA WC BY YURIDIA BURNS. PT BELONGINGS SENT WITH PT.
== END 2021-05-20 15:27 | disposition home health service (06) | DRG 683 ==
LOC: ER 20:24 → ERHOLD 22:58 → MEDS 22:58 → ENPENDDIS 05-19 15:27 → MEDS 05-20 15:27
PROVIDERS: Family Medicine; Internal Medicine; Student in an Organized Health Care Education/Training Program; ADMIT Family Medicine
DX: N17.9 Acute kidney failure, unspecified (principal); N39.0 Urinary tract infection, site not specified; Z66 Do not resuscitate; E87.5 Hyperkalemia; Z86.73 Personal history of transient ischemic attack (TIA), and cerebral infarction without residual deficits; I10 Essential (primary) hypertension; E11.9 Type 2 diabetes mellitus without complications; I48.91 Unspecified atrial fibrillation; E86.0 Dehydration; Z88.2 Allergy status to sulfonamides; Z88.0 Allergy status to penicillin; Z95.2 Presence of prosthetic heart valve; Z79.899 Other long term (current) drug therapy; Z79.84 Long term (current) use of oral hypoglycemic drugs; I95.9 Hypotension, unspecified
CPT/HCPCS: 36415; 71045; 80048; 80053; 81001; 82140; 82947; 83605; 84100; 84484; 85025; 87040; 87086; 93005; 93010; 96360; 96361; 97110; 97161; 97166; 99285-25; A9270; J0696; J3370; J7030; J7050; J7120

== ENCOUNTER → 2021-10-11 | Outpatient (CLI) | payer OTHER ==
[~2021-10-11] MED LIST changes: +CEFD300 PO; +CELEXA10 MG PO; +DOCU100 PO; +NIFE30ER PO; +VISBIOME 112.51 EACH PO
== END | disposition home or self-care (01) ==
LOC: LAB SHORT 16:45
DX: N39.0 Urinary tract infection, site not specified (principal)
CPT/HCPCS: 87086

== ENCOUNTER 2021-11-16 13:18 | Emergency (ER) | payer OTHER ==
[~2021-11-16] VITALS: Ht 180.3 cm; Wt 108.9 kg
[2021-11-16 14:45] LABS: BASOPHILS ABSOLUTE AUTO 0.04 K/mm3 (0.00-0.23); BASOPHILS PERCENT AUTO 0 % (0-2); EOSINOPHILS ABSOLUTE AUTO 0.07 K/mm3 (0.00-0.68); EOSINOPHILS PERCENT AUTO 1 % (0-6); Hematocrit 45.8 % (37.0-53.0); Hemoglobin 15.2 g/dL (13.5-17.5); IMMATURE GRAN ABSOLUTE AUTO 0.03 K/mm3 (0.00-0.10); IMMATURE GRAN PERCENT AUTO 0 % (0-1); LYMPHOCYTES ABSOLUTE AUTO 2.49 K/mm3 (0.84-5.20); LYMPHOCYTES PERCENT AUTO 22 % (21-46); MONOCYTES ABSOLUTE AUTO 0.87 K/mm3 (0.16-1.47); MONOCYTES PERCENT AUTO 8 % (4-13); Mean Corpuscular HGB 29.6 pg (26.0-34.0); Mean Corpuscular HGB Conc 33.2 g/dL (31.5-36.5); Mean Corpuscular Volume 89 fL (80-100); Mean Platelet Volume 11.5 fL (9.1-12.4); NEUTROPHILS ABSOLUTE AUTO 7.67 K/mm3 (1.96-9.15); NEUTROPHILS PERCENT AUTO 69 % (41-73); Platelet Count 261 K/mm3 (150-400); RDW Coefficient Variation 12.7 % (11.7-14.2); RDW Standard Deviation 41.1 fL (35.1-46.3); Red Blood Cell Count 5.13 M/mm3 (4.30-5.90); White Blood Cell Count 11.17 K/mm3 (4.00-11.30)
[2021-11-16 15:03] LABS: Albumin, Blood 3.8 g/dL (3.4-5.0); Albumin/Globulin Ratio 0.8 (0.8-1.8); Bilirubin, Total 0.7 mg/dL (0.1-1.0); Bun/Creatinine Ratio 17.6 (12.0-20.0); Calcium, Blood 9.4 mg/dL (8.5-10.1); Creatinine, Blood 1.31 mg/dL (0.60-1.20); Globulin, Blood 4.8 g/dL (2.2-4.0); Potassium, Blood 4.6 mmol/L (3.5-5.5); Total Protein, Blood 8.6 g/dL (6.4-8.2)
[2021-11-16 15:59] LABS: Source, Urine Clean Catch
[2021-11-16 16:06] LABS: Appearance, Urine Cloudy (Clear); Bilirubin, Urine Neg (Neg); Blood, Urine 4+ (Neg); Color, Urine Yellow (P-Yellow); Glucose Qualitative, Urine 4+ (Neg); Ketones, Urine Neg (Neg); Leukocyte Esterase, Urine 2+ (Neg); Nitrite, Urine Neg (Neg); Protein, Urine 1+ (Neg); Specific Gravity, Urine 1.015 (1.003-1.022); Urobilinogen, Urine NORM (Normal)
[2021-11-16 17:04] LABS: Bacteria Mod /hpf; Hyaline Casts 0-2 /lpf (0-2); Red Blood Cells, Urine TNTC /hpf (0-2); Squamous Epithelial Cells Few /hpf (Few); Transitional Epithelial Cells Rare /hpf (0-Rare); White Blood Cells, Urine TNTC /hpf (0-5); Yeast/Fungi Urine Few /hpf
[2021-11-16] MEDS ORDERED: CEPH500 PO (17:12)
== END 2021-11-16 18:00 | disposition home or self-care (01) ==
LOC: ER 13:18
PROVIDERS: Physician Assistant
DX: N39.0 Urinary tract infection, site not specified (principal); E11.9 Type 2 diabetes mellitus without complications; Z88.0 Allergy status to penicillin; Z88.2 Allergy status to sulfonamides; Z79.899 Other long term (current) drug therapy; W19.XXXA Unspecified fall, initial encounter
CPT/HCPCS: 36415; 70450; 71046; 80053; 81001; 84484; 85025; 87086; 93005; 93010; 99284-25; A9270

== ENCOUNTER → 2021-12-04 | Outpatient (CLI) | payer OTHER ==
[~2021-12-04] MED LIST changes: +CEPH500 PO
== END | disposition home or self-care (01) ==
LOC: LAB 11:45 → LAB SHORT 11:45
DX: N17.0 Acute kidney failure with tubular necrosis (principal); N39.0 Urinary tract infection, site not specified; I95.9 Hypotension, unspecified
CPT/HCPCS: 87077; 87086; 87186

== ENCOUNTER → 2021-12-14 | Outpatient (CLI) | payer OTHER | END | disposition home or self-care (01) | LOC: LAB SHORT 09:30 → LAB 09:30 | DX: R82.998 Other abnormal findings in urine (principal) | CPT/HCPCS: 87086; 87106 ==

== ENCOUNTER 2021-12-21 19:35 | Emergency (ER) | payer OTHER ==
[~2021-12-21] VITALS: Ht 180.3 cm; Wt 113.4 kg
[2021-12-21 20:21] LABS: BASOPHILS ABSOLUTE AUTO 0.03 K/mm3 (0.00-0.23); BASOPHILS PERCENT AUTO 0 % (0-2); EOSINOPHILS ABSOLUTE AUTO 0.16 K/mm3 (0.00-0.68); EOSINOPHILS PERCENT AUTO 2 % (0-6); Hematocrit 45.8 % (37.0-53.0); IMMATURE GRAN ABSOLUTE AUTO 0.03 K/mm3 (0.00-0.10); IMMATURE GRAN PERCENT AUTO 0 % (0-1); LYMPHOCYTES ABSOLUTE AUTO 3.67 K/mm3 (0.84-5.20); LYMPHOCYTES PERCENT AUTO 40 % (21-46); MONOCYTES ABSOLUTE AUTO 0.53 K/mm3 (0.16-1.47); MONOCYTES PERCENT AUTO 6 % (4-13); Mean Corpuscular HGB 29.6 pg (26.0-34.0); Mean Corpuscular HGB Conc 32.8 g/dL (31.5-36.5); Mean Corpuscular Volume 90 fL (80-100); Mean Platelet Volume 11.6 fL (9.1-12.4); NEUTROPHILS PERCENT AUTO 52 % (41-73); Platelet Count 220 K/mm3 (150-400); RDW Coefficient Variation 13.2 % (11.7-14.2); RDW Standard Deviation 43.8 fL (35.1-46.3); Red Blood Cell Count 5.07 M/mm3 (4.30-5.90); White Blood Cell Count 9.22 K/mm3 (4.00-11.30)
[2021-12-21 20:39] LABS: Albumin, Blood 3.4 g/dL (3.4-5.0); Albumin/Globulin Ratio 0.9 (0.8-1.8); Bilirubin, Total 0.2 mg/dL (0.1-1.0); Bun/Creatinine Ratio 17.3 (12.0-20.0); Creatinine, Blood 1.33 mg/dL (0.60-1.20); Globulin, Blood 3.9 g/dL (2.2-4.0); Total Protein, Blood 7.3 g/dL (6.4-8.2)
== END 2021-12-22 00:09 | disposition home or self-care (01) ==
LOC: ER 19:35
PROVIDERS: Emergency Medicine
DX: S09.90XA Unspecified injury of head, initial encounter (principal); Z88.0 Allergy status to penicillin; Z88.2 Allergy status to sulfonamides; E11.9 Type 2 diabetes mellitus without complications; I10 Essential (primary) hypertension; Z79.899 Other long term (current) drug therapy; W18.30XA Fall on same level, unspecified, initial encounter
CPT/HCPCS: 70450; 80053; 85025; 99284-25

== ENCOUNTER → 2022-06-07 | Outpatient (CLI) | payer OTHER | END | disposition home or self-care (01) | LOC: LAB SHORT 12:00 → LAB 12:00 | DX: I95.9 Hypotension, unspecified (principal); N17.9 Acute kidney failure, unspecified; N39.0 Urinary tract infection, site not specified; R30.9 Painful micturition, unspecified | CPT/HCPCS: 87086; 87106 ==

== ENCOUNTER 2022-06-27 13:55 | Emergency (ER) | payer OTHER ==
[~2022-06-27] VITALS: Ht 182.9 cm; Wt 113.4 kg
[2022-06-27 14:52] LABS: Source, Urine Clean Catch
[2022-06-27 15:08] LABS: Appearance, Urine Bloody (Clear); Bilirubin, Urine Neg (Neg); Blood, Urine 4+ (Neg); Color, Urine Red (P-Yellow); Glucose Qualitative, Urine 3+ (Neg); Ketones, Urine 1+ (Neg); Leukocyte Esterase, Urine Neg (Neg); Nitrite, Urine Neg (Neg); Protein, Urine 4+ (Neg); Urobilinogen, Urine NORM (Normal)
[2022-06-27 15:24] LABS: Red Blood Cells, Urine TNTC /hpf (0-2)
[2022-06-27 15:32] LABS: Bacteria Many /hpf; Squamous Epithelial Cells Few /hpf (Few)
== END 2022-06-27 16:22 | disposition home or self-care (01) ==
LOC: ER 13:55
PROVIDERS: Physician Assistant
DX: R31.9 Hematuria, unspecified (principal); I10 Essential (primary) hypertension; E11.9 Type 2 diabetes mellitus without complications; I48.91 Unspecified atrial fibrillation; Z88.0 Allergy status to penicillin; Z88.2 Allergy status to sulfonamides; Z79.899 Other long term (current) drug therapy; Z79.01 Long term (current) use of anticoagulants
CPT/HCPCS: 81001; 87086

== ENCOUNTER 2022-09-26 17:43 | Emergency (ER) | payer OTHER ==
[~2022-09-26] VITALS: Ht 182.9 cm; Wt 108.9 kg
[2022-09-26 18:56] LABS: BASOPHILS ABSOLUTE AUTO 0.06 K/mm3 (0.00-0.23); BASOPHILS PERCENT AUTO 1 % (0-2); EOSINOPHILS ABSOLUTE AUTO 0.18 K/mm3 (0.00-0.68); EOSINOPHILS PERCENT AUTO 1 % (0-6); Hematocrit 48.1 % (37.0-53.0); Hemoglobin 16.5 g/dL (13.5-17.5); IMMATURE GRAN ABSOLUTE AUTO 0.05 K/mm3 (0.00-0.10); IMMATURE GRAN PERCENT AUTO 0 % (0-1); LYMPHOCYTES ABSOLUTE AUTO 4.45 K/mm3 (0.84-5.20); LYMPHOCYTES PERCENT AUTO 34 % (21-46); MONOCYTES ABSOLUTE AUTO 0.77 K/mm3 (0.16-1.47); MONOCYTES PERCENT AUTO 6 % (4-13); Mean Corpuscular HGB 30.5 pg (26.0-34.0); Mean Corpuscular HGB Conc 34.3 g/dL (31.5-36.5); Mean Corpuscular Volume 89 fL (80-100); Mean Platelet Volume 11.4 fL (9.1-12.4); NEUTROPHILS ABSOLUTE AUTO 7.49 K/mm3 (1.96-9.15); NEUTROPHILS PERCENT AUTO 58 % (41-73); Platelet Count 296 K/mm3 (150-400); RDW Coefficient Variation 14.3 % (11.7-14.2); RDW Standard Deviation 45.8 fL (35.1-46.3); Red Blood Cell Count 5.41 M/mm3 (4.30-5.90)
[2022-09-26 19:21] LABS: Albumin, Blood 3.6 g/dL (3.4-5.0); Albumin/Globulin Ratio 0.8 (0.8-1.8); Bilirubin, Total 0.4 mg/dL (0.1-1.0); Bun/Creatinine Ratio 14.8 (12.0-20.0); Calcium, Blood 9.4 mg/dL (8.5-10.1); Creatinine, Blood 1.22 mg/dL (0.60-1.20); Globulin, Blood 4.6 g/dL (2.2-4.0); Potassium, Blood 4.8 mmol/L (3.5-5.5); Total Protein, Blood 8.2 g/dL (6.4-8.2)
== END 2022-09-26 22:27 | disposition left against medical advice (07) ==
LOC: ER 17:43
PROVIDERS: Physician Assistant
DX: R31.9 Hematuria, unspecified (principal); Z79.899 Other long term (current) drug therapy; Z53.21 Procedure and treatment not carried out due to patient leaving prior to being seen by health care provider
CPT/HCPCS: 36415; 80053; 85025; 99282

== ENCOUNTER 2023-01-19 15:20 | Emergency (ER) | payer OTHER ==
[~2023-01-19] VITALS: Ht 182.9 cm; Wt 81.7 kg
[~2023-01-19 15:20] MED LIST changes: +Macrodantin100 MG PO
[2023-01-19 16:13] LABS: Albumin/Globulin Ratio 0.7 (0.8-1.8); Bilirubin, Total 1.3 mg/dL (0.1-1.0); Bun/Creatinine Ratio 20.3 (12.0-20.0); Calcium, Blood 9.2 mg/dL (8.5-10.1); Creatinine, Blood 1.28 mg/dL (0.60-1.20); Globulin, Blood 4.6 g/dL (2.2-4.0); Potassium, Blood 4.2 mmol/L (3.5-5.5); Total Protein, Blood 7.6 g/dL (6.4-8.2)
[2023-01-19 16:18] LABS: BASOPHILS ABSOLUTE AUTO 0.04 K/mm3 (0.00-0.23); BASOPHILS PERCENT AUTO 1 % (0-2); EOSINOPHILS ABSOLUTE AUTO 0.22 K/mm3 (0.00-0.68); EOSINOPHILS PERCENT AUTO 3 % (0-6); Hematocrit 43.1 % (37.0-53.0); Hemoglobin 14.5 g/dL (13.5-17.5); IMMATURE GRAN ABSOLUTE AUTO 0.04 K/mm3 (0.00-0.10); IMMATURE GRAN PERCENT AUTO 1 % (0-1); LYMPHOCYTES ABSOLUTE AUTO 1.79 K/mm3 (0.84-5.20); LYMPHOCYTES PERCENT AUTO 21 % (21-46); MONOCYTES ABSOLUTE AUTO 0.68 K/mm3 (0.16-1.47); MONOCYTES PERCENT AUTO 8 % (4-13); Mean Corpuscular HGB 29.7 pg (26.0-34.0); Mean Corpuscular HGB Conc 33.6 g/dL (31.5-36.5); Mean Corpuscular Volume 88 fL (80-100); Mean Platelet Volume 11.8 fL (9.1-12.4); NEUTROPHILS ABSOLUTE AUTO 5.64 K/mm3 (1.96-9.15); NEUTROPHILS PERCENT AUTO 67 % (41-73); Platelet Count 256 K/mm3 (150-400); RDW Coefficient Variation 12.5 % (11.7-14.2); RDW Standard Deviation 40.6 fL (35.1-46.3); Red Blood Cell Count 4.89 M/mm3 (4.30-5.90); White Blood Cell Count 8.41 K/mm3 (4.00-11.30)
[2023-01-19 16:30] VITALS: BP 125/81
[2023-01-19 17:13] LABS: Source, Urine Voided
[2023-01-19 17:23] LABS: Appearance, Urine Hazy (Clear); Blood, Urine 1+ (Neg); Color, Urine Amber (P-Yellow); Glucose Qualitative, Urine 3+ (Neg); Ketones, Urine 3+ (Neg); Leukocyte Esterase, Urine 1+ (Neg); Nitrite, Urine Neg (Neg); Protein, Urine 2+ (Neg); Urobilinogen, Urine 3+ (Normal)
[2023-01-19 17:26] LABS: Bilirubin, Urine 1+ (Neg)
[2023-01-19 17:34] LABS: Mucus Heavy (0-Heavy)
[2023-01-19 17:37] LABS: Bacteria Many /hpf; Squamous Epithelial Cells Rare /hpf (Few)
[2023-01-19 17:40] LABS: Uric Acid Crystals Mod /hpf
== END 2023-01-19 18:40 | disposition home or self-care (01) ==
LOC: ER 15:20
PROVIDERS: Emergency Medicine
DX: R55 Syncope and collapse (principal); E11.9 Type 2 diabetes mellitus without complications; I10 Essential (primary) hypertension; I48.91 Unspecified atrial fibrillation; Z86.73 Personal history of transient ischemic attack (TIA), and cerebral infarction without residual deficits; Z88.0 Allergy status to penicillin; Z88.2 Allergy status to sulfonamides; Z79.84 Long term (current) use of oral hypoglycemic drugs; Z79.01 Long term (current) use of anticoagulants; Z79.899 Other long term (current) drug therapy; W18.12XA Fall from or off toilet with subsequent striking against object, initial encounter
CPT/HCPCS: 70450; 80053; 81001; 84484; 85025; 87086; 93005; 93010; 96360; 99284-25; J7030

== ENCOUNTER 2024-04-29 10:46 | Emergency (ER) | payer OTHER ==
[~2024-04-29] VITALS: Ht 182.9 cm; Wt 108.9 kg
[~2024-04-29 10:46] MED LIST changes: +ATOR80 PO; -CELEXA10 MG PO; +CELEXA40 M1 PO; +FAMO20 PO; +GLIP10 PO; -GLIP5 PO; +METFORMIN HCL500 M2 PO; +Prinivil10 MG PO; +TAMS.4ER PO; +ZOLP5 PO
[2024-04-29] MEDS ORDERED: NS 1,000 ML IV SCH (11:20)
[2024-04-29 11:44] LABS: Calcium, Blood 8.6 mg/dL (8.5-10.1); Creatinine, Blood 2.85 mg/dL (0.60-1.20); Potassium, Blood 5.6 mmol/L (3.5-5.5)
[2024-04-29 15:57] LABS: Calcium, Ionized (POC) 1.09 mmol/L (1.10-1.46); Chloride (POC) 111 mmol/L (98-108); Creatinine (POC) 2.8 mg/dL (0.8-1.3); Glucose (ISTAT POC) 62 mg/dL (70-99); Hemoglobin (POC) 13.3 g/dL (13.5-17.5); Potassium (POC) 5.1 mmol/L (3.5-5.5); Sodium (POC) 143 mmol/L (135-148); Total CO2 (POC) 22 mmol/L (21-32)
[2024-04-29 17:22] LABS: Source, Urine Clean Catch
[2024-04-29 17:24] LABS: Appearance, Urine Clear (Clear); Bilirubin, Urine Neg (Neg); Blood, Urine 1+ (Neg); Color, Urine Yellow (P-Yellow); Glucose Qualitative, Urine 1+ (Neg); Ketones, Urine Neg (Neg); Leukocyte Esterase, Urine Neg (Neg); Nitrite, Urine Neg (Neg); Protein, Urine Neg (Neg); Urobilinogen, Urine NORM (Normal)
[2024-04-29 17:32] LABS: Granular Casts 0-2 /lpf (0); White Blood Cells, Urine 0-2 /hpf (0-5)
[2024-04-29 17:33] LABS: Bacteria Few /hpf; Squamous Epithelial Cells Not Seen /hpf (Few)
[2024-04-29 18:00] VITALS: BP 160/94
== END 2024-04-29 18:25 | disposition home or self-care (01) ==
LOC: ER 10:46
PROVIDERS: Emergency Medicine
DX: N17.9 Acute kidney failure, unspecified (principal); E87.5 Hyperkalemia; E11.9 Type 2 diabetes mellitus without complications; Z88.2 Allergy status to sulfonamides; Z88.0 Allergy status to penicillin; Z79.899 Other long term (current) drug therapy; Z79.82 Long term (current) use of aspirin
CPT/HCPCS: 76770; 80047; 80048; 81001; 85014; 93005; 93010; 96360; 96361; 99284-25; J7030

== ENCOUNTER 2024-05-09 20:07 | Inpatient (IN) | payer OTHER ==
[~2024-05-09] VITALS: Ht 182.9 cm; Wt 106.0 kg
[2024-05-09 20:26] LABS: BASOPHILS ABSOLUTE AUTO 0.03 K/mm3 (0.00-0.23); BASOPHILS PERCENT AUTO 0 % (0-2); EOSINOPHILS ABSOLUTE AUTO 0.07 K/mm3 (0.00-0.68); EOSINOPHILS PERCENT AUTO 1 % (0-6); Hematocrit 33.7 % (37.0-53.0); IMMATURE GRAN ABSOLUTE AUTO 0.08 K/mm3 (0.00-0.10); IMMATURE GRAN PERCENT AUTO 1 % (0-1); LYMPHOCYTES ABSOLUTE AUTO 2.67 K/mm3 (0.84-5.20); LYMPHOCYTES PERCENT AUTO 19 % (21-46); MONOCYTES ABSOLUTE AUTO 1.28 K/mm3 (0.16-1.47); MONOCYTES PERCENT AUTO 9 % (4-13); Mean Corpuscular HGB 29.3 pg (26.0-34.0); Mean Corpuscular HGB Conc 32.6 g/dL (31.5-36.5); Mean Corpuscular Volume 90 fL (80-100); Mean Platelet Volume 11.7 fL (9.1-12.4); NEUTROPHILS ABSOLUTE AUTO 10.02 K/mm3 (1.96-9.15); NEUTROPHILS PERCENT AUTO 71 % (41-73); Platelet Count 311 K/mm3 (150-400); RDW Coefficient Variation 13.6 % (11.7-14.2); RDW Standard Deviation 45.1 fL (35.1-46.3); Red Blood Cell Count 3.76 M/mm3 (4.30-5.90); White Blood Cell Count 14.15 K/mm3 (4.00-11.30)
[2024-05-09] MEDS ORDERED: CefTRIAXone Sodium 2,000 MG in NS 100 ML IV ONE (20:35)
[2024-05-09 20:44] LABS: Albumin, Blood 2.5 g/dL (3.4-5.0); Albumin/Globulin Ratio 0.5 (0.8-1.8); Bun/Creatinine Ratio 13.5 (12.0-20.0); Calcium, Blood 8.6 mg/dL (8.5-10.1); Creatinine, Blood 2.08 mg/dL (0.60-1.20); Globulin, Blood 4.8 g/dL (2.2-4.0); Potassium, Blood 5.9 mmol/L (3.5-5.5); Total Protein, Blood 7.3 g/dL (6.4-8.2)
[2024-05-09 20:55] LABS: International Normalized Ratio 1.42; Prothrombin Time Results 14.8 Sec (9.7-11.5)
[2024-05-09 21:10] LABS: Influenza A, PCR NEGATIVE (NEGATIVE); Influenza B, PCR NEGATIVE (NEGATIVE); Resp Syncytial Virus, PCR NEGATIVE (NEGATIVE); SARS-Cov-2 (COVID-19) PCR, MMC NEGATIVE (NEGATIVE)
[2024-05-09 23:17] LABS: Source, Urine Clean Catch
[2024-05-09 23:20] LABS: Blood, Urine 1+ (Neg); Glucose Qualitative, Urine 2+ (Neg); Ketones, Urine Neg (Neg); Leukocyte Esterase, Urine 1+ (Neg); Nitrite, Urine Neg (Neg); Protein, Urine 2+ (Neg); Urobilinogen, Urine 3+ (Normal)
[2024-05-09] MEDS ORDERED: NS 1,000 ML IV SCH (23:30)
[2024-05-09] MEDS ORDERED: Acetaminophen 325 MG TABLET PO PRN (23:30)
[2024-05-09 23:33] LABS: Appearance, Urine Hazy (Clear); Bilirubin, Urine 1+ (Neg); Color, Urine Amber (P-Yellow)
[2024-05-09 23:34] LABS: Amorphous Mod (0-Heavy); Bacteria Few /hpf; Red Blood Cells, Urine 0-2 /hpf (0-2); Squamous Epithelial Cells Not Seen /hpf (Few); WBC Cast 0-2 /lpf (0)
[2024-05-09] MEDS ORDERED: Sodium Zirconium Cyclosilicate 10 GM Packet PO ONE (23:50)
[2024-05-10] LABS: Source, Urine Straight Cath
[2024-05-10 00:03] LABS: Blood, Urine 1+ (Neg); Glucose Qualitative, Urine 2+ (Neg); Ketones, Urine Neg (Neg); Leukocyte Esterase, Urine 1+ (Neg); Nitrite, Urine Neg (Neg); Protein, Urine 2+ (Neg); Urobilinogen, Urine 3+ (Normal)
[2024-05-10 00:05] LABS: Appearance, Urine Hazy (Clear); Bilirubin, Urine 1+ (Neg); Color, Urine Amber (P-Yellow)
[2024-05-10 00:10] LABS: Amorphous Mod (0-Heavy); Bacteria Few /hpf; Mucus Light (0-Heavy); Red Blood Cells, Urine 0-2 /hpf (0-2); Squamous Epithelial Cells Rare /hpf (Few); WBC Cast 0-2 /lpf (0)
[2024-05-10 00:50] VITALS: BP 119/74
[2024-05-10 04:13] VITALS: BP 99/70
[2024-05-10 05:56] LABS: Bun/Creatinine Ratio 14.6 (12.0-20.0); Calcium, Blood 8.3 mg/dL (8.5-10.1); Creatinine, Blood 2.13 mg/dL (0.60-1.20); Potassium, Blood 4.3 mmol/L (3.5-5.5)
--- NOTE | 2024-05-10 07:13 | NUR ---
ADMITTED FROM ER IN NO APPARENT DISTRESS. LOKELMA GIVEN FOR HIGH K+ LEVEL AND PT WAS ABLE TO DRINK ALL OF IT. NS STARTED AT 150CC/HR FOR LACTIC ACID LEVEL OF 2.2. PT DOES NOT KNOW THE DOSES OF HIS HOME MEDICATIONS AND HE DID NOT ALLOW ME TO WAKE UP HIS SIGNIFICANT OTHER AT 0200 BUT WE WILL CONTACT HER TODAY. FALL PRECAUTIONS IN PLACE, BED ALARM ON, CALL LIGHT WITHIN REACH.
[2024-05-10 07:21] VITALS: BP 117/71
[2024-05-10 15:29] VITALS: BP 154/90
[2024-05-10] MEDS ORDERED: Insulin Human Lispro 100 Units/ML 3ML Syringe SC SCH (16:30)
--- NOTE | 2024-05-10 17:59 | NUR ---
SHIFT SUMMARY PATIENT WORKING WITH PT THIS SHIFT. ABLE TO TRANSFER TO CHAIR WITH 1 MODERATE ASSIST. RIGHT SIDED WEAKNESS AND GENERAL LEG WEAKNESS. DRAPER D/C IN AM, ABLE TO VOID POST REMOVAL. A/O X4. NO C/O PAIN. RECEIVING IV FLUIDS. CONCERNS REGARDING LUNG SOUNDS MADE TO ROUNDING RESIDENT, NO NEW ORDERS RECEIVED. VSS AND WNL. POOR ORAL INTAKE, ENCOURAGED TO TAKE MORE. CALL LIGHT IN REACH, ABLE TO MAKE NEEDS KNOWN. CARES ONGOING.
[2024-05-10 20:46] VITALS: BP 149/81
[2024-05-10] MEDS ORDERED: CefTRIAXone Sodium 1,000 MG in NS 100 ML IV SCH (21:00)
[2024-05-11 04:50] VITALS: BP 153/87
[2024-05-11 04:54] LABS: BASOPHILS ABSOLUTE AUTO 0.04 K/mm3 (0.00-0.23); BASOPHILS PERCENT AUTO 0 % (0-2); EOSINOPHILS ABSOLUTE AUTO 0.21 K/mm3 (0.00-0.68); EOSINOPHILS PERCENT AUTO 2 % (0-6); Hematocrit 35.4 % (37.0-53.0); Hemoglobin 10.7 g/dL (13.5-17.5); IMMATURE GRAN ABSOLUTE AUTO 0.04 K/mm3 (0.00-0.10); IMMATURE GRAN PERCENT AUTO 0 % (0-1); LYMPHOCYTES ABSOLUTE AUTO 1.85 K/mm3 (0.84-5.20); LYMPHOCYTES PERCENT AUTO 16 % (21-46); MONOCYTES ABSOLUTE AUTO 0.93 K/mm3 (0.16-1.47); MONOCYTES PERCENT AUTO 8 % (4-13); Mean Corpuscular HGB 28.6 pg (26.0-34.0); Mean Corpuscular HGB Conc 30.2 g/dL (31.5-36.5); NEUTROPHILS ABSOLUTE AUTO 8.47 K/mm3 (1.96-9.15); NEUTROPHILS PERCENT AUTO 74 % (41-73); Platelet Count 281 K/mm3 (150-400); RDW Coefficient Variation 13.6 % (11.7-14.2); RDW Standard Deviation 47.8 fL (35.1-46.3); Red Blood Cell Count 3.74 M/mm3 (4.30-5.90); White Blood Cell Count 11.54 K/mm3 (4.00-11.30)
[2024-05-11 04:55] LABS: Mean Corpuscular Volume 95 fL (80-100)
[2024-05-11 05:21] LABS: Bun/Creatinine Ratio 14.6 (12.0-20.0); Calcium, Blood 8.6 mg/dL (8.5-10.1); Creatinine, Blood 1.51 mg/dL (0.60-1.20); Potassium, Blood 4.1 mmol/L (3.5-5.5)
--- NOTE | 2024-05-11 06:25 | NUR ---
SHIFT SUMMARY: Pt is admitted for severe sepsis and is a full code. Is alert and able to make needs known. ADLs have been 1p but did not get out of bed during shift. Denies pain or discomfort when asked.
[2024-05-11 07:44] VITALS: BP 166/98
[2024-05-11] MEDS ORDERED: Acetaminophen325 M1 PO (14:21)
[2024-05-11 14:58] VITALS: BP 190/120
[2024-05-11] MEDS ORDERED: Lisinopril 20 MG Tab PO STA (15:08)
[2024-05-11 15:50] VITALS: BP 124/76
[2024-05-13] MEDS ORDERED: ONDA4ODT MM (09:18)
== END 2024-05-11 16:03 | disposition home health service (06) | DRG 871 ==
LOC: ER 20:07 → MEDS 23:27
PROVIDERS: Family Medicine; Student in an Organized Health Care Education/Training Program; ADMIT Internal Medicine
PROC: 3E03329 Introduction of Other Anti-infective into Peripheral Vein, Percutaneous Approach (ICD-10-PCS; principal; 2024-05-09)
PROC: 0T9B70Z Drainage of Bladder with Drainage Device, Via Natural or Artificial Opening (ICD-10-PCS; 2024-05-09)
DX: A41.9 Sepsis, unspecified organism (principal); G92.8 Other toxic encephalopathy; J96.01 Acute respiratory failure with hypoxia; E87.20 Acidosis, unspecified; R65.20 Severe sepsis without septic shock; I48.91 Unspecified atrial fibrillation; E87.5 Hyperkalemia; N18.30 Chronic kidney disease, stage 3 unspecified; E11.22 Type 2 diabetes mellitus with diabetic chronic kidney disease; I12.9 Hypertensive chronic kidney disease with stage 1 through stage 4 chronic kidney disease, or unspecified chronic kidney disease; R74.01 Elevation of levels of liver transaminase levels; Z86.73 Personal history of transient ischemic attack (TIA), and cerebral infarction without residual deficits; Z98.890 Other specified postprocedural states; Z95.2 Presence of prosthetic heart valve; Z88.0 Allergy status to penicillin; Z88.2 Allergy status to sulfonamides; Z79.899 Other long term (current) drug therapy; Z79.82 Long term (current) use of aspirin; Z79.84 Long term (current) use of oral hypoglycemic drugs; Z79.01 Long term (current) use of anticoagulants; W18.30XA Fall on same level, unspecified, initial encounter
CPT/HCPCS: 0241U; 36415; 51702; 70450; 71046; 72125; 72170; 80048; 80053; 81001; 82140; 82550; 82947; 83605; 84145; 84484; 85025; 85610; 85730; 87086; 93005; 93010; 96365; 97110; 97161; 97530; 99285-25; A9270; J0696; J7030

== ENCOUNTER → 2024-06-17 | Outpatient (CLI) | payer OTHER ==
[~2024-06-17] MED LIST changes: +Acetaminophen325 M1 PO; +ONDA4ODT MM
[2024-06-17 20:18] LABS: Albumin, Blood 3.1 g/dL (3.4-5.0); Anion Gap 12 mmol/L (3-11); Blood Urea Nitrogen 15 mg/dL (8-24); CO2, Blood 25 mmol/L (21-32); Chloride, Blood 106 mmol/L (98-108); Glomerular Filtration Rate 81 (60-); Glucose, Blood 219 mg/dL (70-99); Phosphorus, Blood 2.9 mg/dL (2.5-4.9); Potassium, Blood 3.9 mmol/L (3.5-5.5); Sodium, Blood 139 mmol/L (136-145)
== END ==
LOC: LAB 18:02 → LAB SHORT 18:02
PROVIDERS: Internal Medicine Nephrology
DX: N18.2 Chronic kidney disease, stage 2 (mild) (principal)
CPT/HCPCS: 80069

== ENCOUNTER → 2024-06-30 | Outpatient (CLI) | payer OTHER ==
[2024-06-30 12:54] LABS: Creatinine Urine 92.5 mg/dL (27.00-270.00)
[2024-06-30 12:57] LABS: Microalbumin, Urine Quant. 19.8 mg/L (0.000-20.000)
== END ==
LOC: LAB 08:30 → LAB SHORT 08:30 → LAB FUT 06-22 14:05 → EDSTATUS 06-22 14:05
PROVIDERS: Internal Medicine Nephrology
DX: N18.2 Chronic kidney disease, stage 2 (mild) (principal); D63.1 Anemia in chronic kidney disease; E55.9 Vitamin D deficiency, unspecified; E78.00 Pure hypercholesterolemia, unspecified; R76.9 Abnormal immunological finding in serum, unspecified; R94.6 Abnormal results of thyroid function studies; R94.5 Abnormal results of liver function studies; N25.81 Secondary hyperparathyroidism of renal origin
CPT/HCPCS: 81050; 82043; 82570; 84156

== ENCOUNTER 2024-10-10 04:54 | Emergency (ER) | payer OTHER ==
[~2024-10-10] VITALS: Ht 182.9 cm; Wt 108.9 kg
[2024-10-10 05:21] LABS: CORONAVIRUS COVID-19 AG Negative (NEGATIVE); INFLUENZA A AG Positive (NEGATIVE); INFLUENZA B AG Negative (NEGATIVE)
[2024-10-10 05:23] LABS: BASOPHILS ABSOLUTE AUTO 0.04 K/mm3 (0.00-0.23); BASOPHILS PERCENT AUTO 0 % (0-2); EOSINOPHILS ABSOLUTE AUTO 0.05 K/mm3 (0.00-0.68); EOSINOPHILS PERCENT AUTO 1 % (0-6); Hematocrit 36.7 % (37.0-53.0); Hemoglobin 12.1 g/dL (13.5-17.5); IMMATURE GRAN ABSOLUTE AUTO 0.05 K/mm3 (0.00-0.10); IMMATURE GRAN PERCENT AUTO 1 % (0-1); LYMPHOCYTES ABSOLUTE AUTO 1.68 K/mm3 (0.84-5.20); LYMPHOCYTES PERCENT AUTO 17 % (21-46); MONOCYTES ABSOLUTE AUTO 1.08 K/mm3 (0.16-1.47); MONOCYTES PERCENT AUTO 11 % (4-13); Mean Corpuscular HGB 29.2 pg (26.0-34.0); Mean Corpuscular Volume 89 fL (80-100); NEUTROPHILS ABSOLUTE AUTO 6.86 K/mm3 (1.96-9.15); NEUTROPHILS PERCENT AUTO 70 % (41-73); Platelet Count 206 K/mm3 (150-400); RDW Coefficient Variation 13.8 % (11.7-14.2); RDW Standard Deviation 44.8 fL (35.1-46.3); Red Blood Cell Count 4.14 M/mm3 (4.30-5.90); White Blood Cell Count 9.76 K/mm3 (4.00-11.30)
[2024-10-10 05:33] LABS: Albumin, Blood 2.7 g/dL (3.4-5.0); Albumin/Globulin Ratio 0.8 (0.8-1.8); Bilirubin, Total 0.3 mg/dL (0.1-1.0); Bun/Creatinine Ratio 18.8 (12.0-20.0); Calcium, Blood 8.1 mg/dL (8.5-10.1); Creatinine, Blood 1.49 mg/dL (0.60-1.20); Globulin, Blood 3.5 g/dL (2.2-4.0); Potassium, Blood 4.5 mmol/L (3.5-5.5); Total Protein, Blood 6.2 g/dL (6.4-8.2)
[2024-10-10 06:10] LABS: Source, Urine Straight Cath
[2024-10-10 06:26] LABS: Appearance, Urine Clear (Clear); Bilirubin, Urine Neg (Neg); Blood, Urine 5+ (Neg); Color, Urine Yellow (P-Yellow); Glucose Qualitative, Urine 1+ (Neg); Ketones, Urine Neg (Neg); Leukocyte Esterase, Urine Neg (Neg); Nitrite, Urine Neg (Neg); Protein, Urine 2+ (Neg); Urobilinogen, Urine 1+ (Normal)
[2024-10-10 06:35] LABS: Bacteria Few /hpf; Red Blood Cells, Urine 25-50 /hpf (0-2); Squamous Epithelial Cells Few /hpf (Few); White Blood Cells, Urine 0-2 /hpf (0-5)
[2024-10-10] MEDS ORDERED: NS 1,000 ML IV SCH (06:35)
[2024-10-10 06:39] LABS: Hyaline Casts 0-2 /lpf (0-2)
[2024-10-10 09:50] VITALS: BP 128/74
== END 2024-10-10 09:51 | disposition home or self-care (01) ==
LOC: ER 04:54
PROVIDERS: Emergency Medicine
DX: J10.1 Influenza due to other identified influenza virus with other respiratory manifestations (principal); I12.9 Hypertensive chronic kidney disease with stage 1 through stage 4 chronic kidney disease, or unspecified chronic kidney disease; N18.30 Chronic kidney disease, stage 3 unspecified; I48.91 Unspecified atrial fibrillation; E11.9 Type 2 diabetes mellitus without complications; E78.5 Hyperlipidemia, unspecified; Z86.73 Personal history of transient ischemic attack (TIA), and cerebral infarction without residual deficits; Z79.82 Long term (current) use of aspirin; Z79.84 Long term (current) use of oral hypoglycemic drugs; Z79.899 Other long term (current) drug therapy; Z88.0 Allergy status to penicillin; Z88.2 Allergy status to sulfonamides
CPT/HCPCS: 71045; 80053; 81001; 85025; 87428-QW; 96360; 99285-25; J7030

== ENCOUNTER 2024-10-20 10:57 | Emergency (ER) | payer OTHER ==
[~2024-10-20] VITALS: Ht 182.9 cm; Wt 108.9 kg
[2024-10-20] MEDS ORDERED: TRAZ50 PO (11:16)
[2024-10-20] MEDS ORDERED: BENZ100A PO (11:16)
[2024-10-20] MEDS ORDERED: NS 1,000 ML BAG IR ONE (11:55)
[2024-10-20] MEDS ORDERED: NS 1,000 ML IV ONE (12:00)
[2024-10-20 12:25] LABS: BASOPHILS ABSOLUTE AUTO 0.03 K/mm3 (0.00-0.23); BASOPHILS PERCENT AUTO 0 % (0-2); EOSINOPHILS ABSOLUTE AUTO 0.05 K/mm3 (0.00-0.68); EOSINOPHILS PERCENT AUTO 0 % (0-6); Hematocrit 44.4 % (37.0-53.0); Hemoglobin 14.8 g/dL (13.5-17.5); IMMATURE GRAN ABSOLUTE AUTO 0.14 K/mm3 (0.00-0.10); IMMATURE GRAN PERCENT AUTO 1 % (0-1); LYMPHOCYTES ABSOLUTE AUTO 1.34 K/mm3 (0.84-5.20); LYMPHOCYTES PERCENT AUTO 12 % (21-46); MONOCYTES ABSOLUTE AUTO 0.92 K/mm3 (0.16-1.47); MONOCYTES PERCENT AUTO 8 % (4-13); Mean Corpuscular HGB 28.8 pg (26.0-34.0); Mean Corpuscular HGB Conc 33.3 g/dL (31.5-36.5); Mean Corpuscular Volume 86 fL (80-100); Mean Platelet Volume 11.2 fL (9.1-12.4); NEUTROPHILS ABSOLUTE AUTO 8.98 K/mm3 (1.96-9.15); NEUTROPHILS PERCENT AUTO 78 % (41-73); Platelet Count 458 K/mm3 (150-400); RDW Coefficient Variation 13.6 % (11.7-14.2); RDW Standard Deviation 43.3 fL (35.1-46.3); Red Blood Cell Count 5.14 M/mm3 (4.30-5.90); White Blood Cell Count 11.46 K/mm3 (4.00-11.30)
[2024-10-20 12:44] LABS: Albumin, Blood 3.4 g/dL (3.4-5.0); Albumin/Globulin Ratio 0.6 (0.8-1.8); Bun/Creatinine Ratio 42.3 (12.0-20.0); Calcium, Blood 9.9 mg/dL (8.5-10.1); Creatinine, Blood 1.3 mg/dL (0.60-1.20); Globulin, Blood 5.6 g/dL (2.2-4.0); Potassium, Blood 4.9 mmol/L (3.5-5.5)
[2024-10-20 13:38] LABS: Base Excess Venous -8.3 mmol/L; Bicarbonate Venous 18.8 mmol/L (24.0-30.0); PCO2 Venous 30.6 mmHg (38-42); pH Blood Venous 7.36 (7.34-7.37)
[2024-10-20 13:54] LABS: CORONAVIRUS COVID-19 AG Negative (NEGATIVE); INFLUENZA A AG Negative (NEGATIVE); INFLUENZA B AG Negative (NEGATIVE)
[2024-10-20] MEDS ORDERED: Lactated Ringer's 1,000 ML IV SCH (15:05)
[2024-10-20 18:03] VITALS: BP 148/74
== END 2024-10-20 18:43 | disposition home or self-care (01) ==
LOC: ER 10:57
PROVIDERS: Emergency Medicine; Family Medicine
DX: E86.0 Dehydration (principal); R53.1 Weakness; I69.354 Hemiplegia and hemiparesis following cerebral infarction affecting left non-dominant side; I12.9 Hypertensive chronic kidney disease with stage 1 through stage 4 chronic kidney disease, or unspecified chronic kidney disease; E11.22 Type 2 diabetes mellitus with diabetic chronic kidney disease; N18.9 Chronic kidney disease, unspecified; I48.91 Unspecified atrial fibrillation; Z95.1 Presence of aortocoronary bypass graft; Z95.3 Presence of xenogenic heart valve; Z99.3 Dependence on wheelchair; Z88.0 Allergy status to penicillin; Z88.2 Allergy status to sulfonamides; Z79.82 Long term (current) use of aspirin; Z79.01 Long term (current) use of anticoagulants; Z79.84 Long term (current) use of oral hypoglycemic drugs; Z79.899 Other long term (current) drug therapy
CPT/HCPCS: 71046; 80053; 82010; 82803; 83880; 84484; 85025; 87428-QW; 93005; 93010; 96360; 96361; 99285-25; J7030; J7120

== ENCOUNTER → 2025-04-08 | Outpatient (CLI) | payer OTHER ==
[~2025-04-08] MED LIST changes: +BENZ100A PO; +TRAZ50 PO
[2025-04-08 15:45] LABS: Source, Urine Clean Catch
[2025-04-08 18:44] LABS: Bilirubin, Urine Neg (Neg); Color, Urine Yellow (P-Yellow); Glucose Qualitative, Urine Neg (Neg); Ketones, Urine Neg (Neg); Leukocyte Esterase, Urine 3+ (Neg); Protein, Urine 2+ (Neg); Specific Gravity, Urine 1.010 (1.003-1.022); Urobilinogen, Urine NORM (Normal)
[2025-04-08 20:09] LABS: Red Blood Cells, Urine 25-50 /hpf (0-2); White Blood Cells, Urine TNTC /hpf (0-5)
== END | disposition home or self-care (01) ==
LOC: LAB 08:00 → LAB SHORT 08:00
PROVIDERS: Nurse Practitioner Family
DX: N39.0 Urinary tract infection, site not specified (principal)
CPT/HCPCS: 81001; 87086

== ENCOUNTER → 2025-07-13 | Outpatient (CLI) | payer OTHER ==
[2025-07-13 13:07] LABS: Bilirubin, Urine Neg (Neg); Color, Urine Yellow (P-Yellow); Glucose Qualitative, Urine Neg (Neg); Ketones, Urine Neg (Neg); Leukocyte Esterase, Urine 3+ (Neg); Protein, Urine 2+ (Neg); Specific Gravity, Urine 1.005 (1.003-1.022); Urobilinogen, Urine NORM (Normal)
[2025-07-13 13:25] LABS: White Blood Cells, Urine TNTC /hpf (0-5)
== END ==
LOC: LAB 11:57 → LAB SHORT 11:57
PROVIDERS: Nurse Practitioner Family
DX: N39.0 Urinary tract infection, site not specified (principal)
CPT/HCPCS: 81001; 87077; 87086; 87186

== ENCOUNTER → 2025-08-03 | Outpatient (CLI) | payer OTHER ==
[~2025-08-03] MED LIST changes: +ADRENALIN1 MG/1 M1 IM; +AMOCLA875 PO; +BENADRYL25 MG PO; +CALASOOTHE 0.4113 GM TOP; +GABA300 PO; +LOKELMA10 GM PO; +SERT100 PO; +SODBIC650 PO; +VSL#3 112.5B1 EACH PO
== END | disposition home or self-care (01) ==
LOC: LAB SHORT 17:35 → LAB 17:35
DX: N39.0 Urinary tract infection, site not specified (principal)
CPT/HCPCS: 87077; 87086; 87186

== ENCOUNTER 2025-08-06 19:37 | Inpatient (IN) | payer OTHER ==
[~2025-08-06] VITALS: Ht 182.9 cm; Wt 106.4 kg
[~2025-08-06 19:37] MED LIST changes: -ADRENALIN1 MG/1 M1 IM; -AMOCLA875 PO; -BENADRYL25 MG PO; -CALASOOTHE 0.4113 GM TOP; -GABA300 PO; -LOKELMA10 GM PO; -SERT100 PO; -SODBIC650 PO; -VSL#3 112.5B1 EACH PO
[2025-08-06 20:00] LABS: BASOPHILS ABSOLUTE AUTO 0.02 K/mm3 (0.00-0.23); BASOPHILS PERCENT AUTO 0 % (0-2); EOSINOPHILS ABSOLUTE AUTO 0.11 K/mm3 (0.00-0.68); EOSINOPHILS PERCENT AUTO 1 % (0-6); Hematocrit 34.1 % (37.0-53.0); Hemoglobin 10.4 g/dL (13.5-17.5); IMMATURE GRAN ABSOLUTE AUTO 0.05 K/mm3 (0.00-0.10); IMMATURE GRAN PERCENT AUTO 0 % (0-1); LYMPHOCYTES ABSOLUTE AUTO 1.69 K/mm3 (0.84-5.20); LYMPHOCYTES PERCENT AUTO 12 % (21-46); MONOCYTES ABSOLUTE AUTO 1.04 K/mm3 (0.16-1.47); MONOCYTES PERCENT AUTO 8 % (4-13); Mean Corpuscular HGB Conc 30.5 g/dL (31.5-36.5); Mean Corpuscular Volume 90 fL (80-100); NEUTROPHILS ABSOLUTE AUTO 10.83 K/mm3 (1.96-9.15); NEUTROPHILS PERCENT AUTO 79 % (41-73); NRBC ABSOLUTE 0.00 K/mm3 (0.00-0.02); NRBC Auto 0.0 /100 WBC (0.0-0.2); Platelet Count 244 K/mm3 (150-400); RDW Coefficient Variation 14.6 % (11.7-14.2); RDW Standard Deviation 48.6 fL (35.1-46.3)
[2025-08-06] MEDS ORDERED: CALASOOTHE 0.4113 GM TOP (20:03)
[2025-08-06] MEDS ORDERED: CEPH500 PO (20:04)
[2025-08-06] MEDS ORDERED: GABA300 PO (20:05)
[2025-08-06] MEDS ORDERED: SERT100 PO (20:07)
[2025-08-06] MEDS ORDERED: SODBIC650 PO (20:08)
[2025-08-06 20:13] LABS: Alanine Aminotransfer (ALT/SGP 33.0 U/L (12-78); Albumin, Blood 2.7 g/dL (3.4-5.0); Albumin/Globulin Ratio 0.7 (0.8-1.8); Anion Gap 10.0 mmol/L (3-11); Aspartate Aminotrans (AST/SGOT 36.0 U/L (12-37); Bilirubin, Total 0.6 mg/dL (0.1-1.0); Blood Urea Nitrogen 47.0 mg/dL (8-24); CO2, Blood 24.0 mmol/L (21-32); Calcium, Blood 8.0 mg/dL (8.5-10.1); Chloride, Blood 105.0 mmol/L (98-108); Creatinine, Blood 3.36 mg/dL (0.60-1.20); Globulin, Blood 4.1 g/dL (2.2-4.0); Glucose, Blood 174.0 mg/dL (70-99); Potassium, Blood 4.6 mmol/L (3.5-5.5); Sodium, Blood 134.0 mmol/L (136-145); Total Protein, Blood 6.8 g/dL (6.4-8.2)
[2025-08-06 20:18] LABS: Source, Urine Clean Catch
[2025-08-06 20:25] LABS: Color, Urine Brown (P-Yellow); Glucose Qualitative, Urine Neg (Neg); Ketones, Urine 1+ (Neg); Leukocyte Esterase, Urine 3+ (Neg); Protein, Urine 4+ (Neg); Specific Gravity, Urine 1.020 (1.003-1.022); Urobilinogen, Urine 1+ (Normal)
[2025-08-06 20:30] LABS: Bilirubin, Urine 1+ (Neg)
[2025-08-06 20:35] LABS: Red Blood Cells, Urine 50-100 /hpf (0-2); White Blood Cells, Urine TNTC /hpf (0-5)
[2025-08-06] MEDS ORDERED: CefTRIAXone Sodium 1,000 MG in NS 100 ML IV ONE (20:55)
[2025-08-06] MEDS ORDERED: NS 1,000 ML IV SCH (22:25)
[2025-08-06] MEDS ORDERED: FLU VACC TS2025(65UP)/MF59C/PF 45 MCG/0.5 ML SYRINGE IM SCH (22:25)
[2025-08-06] MEDS ORDERED: Ondansetron HCl 2 MG / ML 2ML Vial IV PRN (22:30)
[2025-08-06] MEDS ORDERED: LOKELMA10 GM PO (22:50)
[2025-08-06 22:59] LABS: Prothrombin Time Results 14.8 Sec (9.7-11.5)
[2025-08-06 23:00] VITALS: BP 135/74
[2025-08-06] MEDS ORDERED: Heparin Sodium,Porcine 5,000 UNIT/0.5 ML SDV SC SCH (23:00)
[2025-08-07] VITALS (14 sets, daily range): BP systolic 98–174; BP diastolic 66–93
[2025-08-07 05:34] LABS: BASOPHILS ABSOLUTE AUTO 0.03 K/mm3 (0.00-0.23); BASOPHILS PERCENT AUTO 0 % (0-2); EOSINOPHILS ABSOLUTE AUTO 0.14 K/mm3 (0.00-0.68); EOSINOPHILS PERCENT AUTO 1 % (0-6); Hematocrit 33.2 % (37.0-53.0); Hemoglobin 10.5 g/dL (13.5-17.5); IMMATURE GRAN ABSOLUTE AUTO 0.07 K/mm3 (0.00-0.10); IMMATURE GRAN PERCENT AUTO 1 % (0-1); LYMPHOCYTES ABSOLUTE AUTO 1.61 K/mm3 (0.84-5.20); LYMPHOCYTES PERCENT AUTO 12 % (21-46); MONOCYTES ABSOLUTE AUTO 1.00 K/mm3 (0.16-1.47); MONOCYTES PERCENT AUTO 8 % (4-13); Mean Corpuscular HGB Conc 31.6 g/dL (31.5-36.5); Mean Corpuscular Volume 88 fL (80-100); NEUTROPHILS ABSOLUTE AUTO 10.43 K/mm3 (1.96-9.15); NEUTROPHILS PERCENT AUTO 79 % (41-73); NRBC ABSOLUTE 0.00 K/mm3 (0.00-0.02); NRBC Auto 0.0 /100 WBC (0.0-0.2); Platelet Count 258 K/mm3 (150-400); RDW Coefficient Variation 14.7 % (11.7-14.2); RDW Standard Deviation 48.0 fL (35.1-46.3)
--- NOTE | 2025-08-07 06:04 | NUR ---
SHIFT SUMMARY ADMIT 08/06 IN EVENING FOR UROSEPSIS AFTER SYNCOPAL EPISODE ON TOILET AT RESIDENCE, [facility]. PT REPORTS BEING WHEELCHAIR-BOUND, ABLE TO STAND/PIVOT WITH 2 PERSON ASSIST AT BASELINE. WEARS DEPENDS FOR INCONTINENCE OF BOWEL & BLADDER, DOES ALSO UTILIZE URINAL AT BEDSIDE WITH CONTINUED DARK RED-BROWN URINE OUTPUT. PT EXPERIENCING DYSURIA. FAILED 5 DAYS OUTPT KEFLEX PRIOR TO ADMIT. NS IN LFA 20G IV AT 100 ML/HR. DID RECEIVE 500 CC IVF, 4 MG ZOFRAN, AND ROCEPHIN IN ED PRIOR TO ADMIT. DE-SATTING ON BASELINE RA, PLACED ON 2L NC WITH EUPNEA WHILE SLEEPING. DOES SLEEP WITH HOB >30 DEG, SUSPECT ORTHOPNEA. ANTICOAG IS HELD, PT IS GIVEN SC HEPARIN. A&OX3-4, SITUATIONALLY REDIRECTABLE. AC/HS CBGs FOR ORAL ANTIDIABETIC-CONTROLLED DM2. SLEPT WELL. PLAN FOR PT/ST/CM/PALLIATIVE TODAY.
[2025-08-07 06:08] LABS: Alanine Aminotransfer (ALT/SGP 32.0 U/L (12-78); Albumin, Blood 2.6 g/dL (3.4-5.0); Albumin/Globulin Ratio 0.6 (0.8-1.8); Anion Gap 10.0 mmol/L (3-11); Aspartate Aminotrans (AST/SGOT 32.0 U/L (12-37); Bilirubin, Total 0.5 mg/dL (0.1-1.0); Blood Urea Nitrogen 50.0 mg/dL (8-24); CO2, Blood 26.0 mmol/L (21-32); Calcium, Blood 8.2 mg/dL (8.5-10.1); Chloride, Blood 104.0 mmol/L (98-108); Creatinine, Blood 3.05 mg/dL (0.60-1.20); Globulin, Blood 4.1 g/dL (2.2-4.0); Glucose, Blood 109.0 mg/dL (70-99); Potassium, Blood 4.5 mmol/L (3.5-5.5); Sodium, Blood 135.0 mmol/L (136-145); Total Protein, Blood 6.7 g/dL (6.4-8.2)
[2025-08-07] MEDS ORDERED: Insulin Human Lispro 100 Units/ML 3ML Syringe SC SCH (07:30)
--- NOTE | 2025-08-07 11:49 | NUR ---
RN NOTE MR STARKS HAS BEEN UP TO THE CHAIR THIS MORNING WITH PT, BACK INTO BED FOR RENAL ULTRASOUND. ORIENTATED TO SELF, PLACE, SITUATION, MONTH/NOT YEAR. O2 SATS IN THE 90S ON ROOM AIR, NO LONGER ON OXYGEN NC. TELE SR,1ST DEGREE AVB, BBB. NO CALLS FROM CAKE TESTER. MR STARKS HAS MILD DYSURIA OTHERWISE DESCRIBES FEELING COMFORTABLE.
[2025-08-07] MEDS ORDERED: EpiNEPhrine 1 MG/1 ML 1ML Vial IM PRN (12:05)
[2025-08-07] MEDS ORDERED: DiphenhydrAMINE HCl 50 MG/ML 1ML Vial IV PRN (12:35)
--- NOTE | 2025-08-07 15:50 | NUR ---
Shift Summary. Mr Fong is orientated to self, place, situation, month not year. Renal ultrasound done this morning with low volume in bladder. Voiding small volumes at a time of sangeetha urine. Up to chair for breakfast and for lunch, 1 person assist to pivot to the chair and two person assist to boost up in bed. On telemetry SR, 1st degree AVB, BBB, no calls from television production assistant. PCN trial done, given amoxacilin PO at 1230. Monitored closely for 2 hours, frequent VS done. He denied any new symtoms of allergy or respiratory difficulty on room air. In bed now, bed low, call light in reach.
[2025-08-08] MEDS ORDERED: Ampicillin Sod/Sulbactam Sod 1.5 GM in NS 100 ML IV SCH
[2025-08-08 00:02] VITALS: BP 139/79
[2025-08-08] MEDS ORDERED: NS 250 ML IV PRN (00:15)
--- NOTE | 2025-08-08 03:44 | NUR ---
SHIFT SUMMARY: PT IS AOX2-3. PT EDUCATED ON NOT MAKING SEXUALLY INAPPROPIATE JOKES TOWARDS OR ABOUT STAFF. PT PULLED IV OUT. ATTEMPTED TO PLACE NEW ONE. CHARGE NOTIFIED TO ATTEMPT TO PLACE ONE. PT USES URNIAL WITH AST. BED ALARM SET AND PT REPOSITIONED Q2-Q3. CALL LIGHT IN REACH
[2025-08-08 03:52] VITALS: BP 156/89
[2025-08-08 06:06] LABS: BASOPHILS ABSOLUTE AUTO 0.03 K/mm3 (0.00-0.23); BASOPHILS PERCENT AUTO 0 % (0-2); EOSINOPHILS ABSOLUTE AUTO 0.19 K/mm3 (0.00-0.68); EOSINOPHILS PERCENT AUTO 2 % (0-6); Hematocrit 33.3 % (37.0-53.0); Hemoglobin 10.4 g/dL (13.5-17.5); IMMATURE GRAN ABSOLUTE AUTO 0.03 K/mm3 (0.00-0.10); IMMATURE GRAN PERCENT AUTO 0 % (0-1); LYMPHOCYTES ABSOLUTE AUTO 1.37 K/mm3 (0.84-5.20); LYMPHOCYTES PERCENT AUTO 14 % (21-46); MONOCYTES ABSOLUTE AUTO 0.93 K/mm3 (0.16-1.47); MONOCYTES PERCENT AUTO 9 % (4-13); Mean Corpuscular HGB Conc 31.2 g/dL (31.5-36.5); Mean Corpuscular Volume 88 fL (80-100); NEUTROPHILS ABSOLUTE AUTO 7.59 K/mm3 (1.96-9.15); NEUTROPHILS PERCENT AUTO 75 % (41-73); NRBC ABSOLUTE 0.00 K/mm3 (0.00-0.02); NRBC Auto 0.0 /100 WBC (0.0-0.2); Platelet Count 255 K/mm3 (150-400); RDW Coefficient Variation 14.6 % (11.7-14.2); RDW Standard Deviation 47.1 fL (35.1-46.3)
[2025-08-08 06:39] LABS: Alanine Aminotransfer (ALT/SGP 92.0 U/L (12-78); Albumin, Blood 2.5 g/dL (3.4-5.0); Albumin/Globulin Ratio 0.6 (0.8-1.8); Anion Gap 12.0 mmol/L (3-11); Aspartate Aminotrans (AST/SGOT 133.0 U/L (12-37); Bilirubin, Total 0.5 mg/dL (0.1-1.0); Blood Urea Nitrogen 44.0 mg/dL (8-24); CO2, Blood 24.0 mmol/L (21-32); Calcium, Blood 8.3 mg/dL (8.5-10.1); Chloride, Blood 104.0 mmol/L (98-108); Creatinine, Blood 2.27 mg/dL (0.60-1.20); Globulin, Blood 4.2 g/dL (2.2-4.0); Glucose, Blood 122.0 mg/dL (70-99); Potassium, Blood 4.8 mmol/L (3.5-5.5); Sodium, Blood 135.0 mmol/L (136-145); Total Protein, Blood 6.7 g/dL (6.4-8.2)
[2025-08-08 07:34] VITALS: BP 168/94
--- NOTE | 2025-08-08 09:22 | NUR ---
CONSULTATION RECIEVED, REVIEWED, AND PROCESSED. NO AD/POLST ON FILE
[2025-08-08 11:57] VITALS: BP 171/87
[2025-08-08 15:45] VITALS: BP 180/96
--- NOTE | 2025-08-08 15:51 | NUR ---
NOTIFIED DR. BRADFORD ABOUT PATIENTS VITALS, PROVIDER WILL PUT ORDER IN.
--- NOTE | 2025-08-08 18:33 | NUR ---
SHIFT SUMMARY PATIENT ALERT AND ORIENTED X 3 FORGETFUL AT TIMES. PATIENT YELLS AND DOESN T USE CALL LIGHT. COOPERATIVE WITH CARE. NO ACUTE CHANGES THROUGHOUT SHIFT. MEDICATED PER EMAR. BED LOCKED AND IN LOWEST POSITION. CALL LIGHT WITHIN REACH.
[2025-08-08 19:09] VITALS: BP 165/107
[2025-08-09 00:01] VITALS: BP 182/100
--- NOTE | 2025-08-09 04:04 | NUR ---
SHIFT SUMMARY: PT IS AOX2-3. PT HAS 2L NC ON. CONTINOUS PULSE OX IS IN PLACE. MEDICATED PER EMAR. NO ACUTE CHANGES THIS SHIFT.
[2025-08-09 04:11] VITALS: BP 153/87
[2025-08-09 06:37] LABS: BASOPHILS ABSOLUTE AUTO 0.03 K/mm3 (0.00-0.23); BASOPHILS PERCENT AUTO 0 % (0-2); EOSINOPHILS ABSOLUTE AUTO 0.24 K/mm3 (0.00-0.68); EOSINOPHILS PERCENT AUTO 3 % (0-6); Hematocrit 34.9 % (37.0-53.0); Hemoglobin 11.0 g/dL (13.5-17.5); IMMATURE GRAN ABSOLUTE AUTO 0.04 K/mm3 (0.00-0.10); IMMATURE GRAN PERCENT AUTO 0 % (0-1); LYMPHOCYTES ABSOLUTE AUTO 1.43 K/mm3 (0.84-5.20); LYMPHOCYTES PERCENT AUTO 15 % (21-46); MONOCYTES ABSOLUTE AUTO 0.91 K/mm3 (0.16-1.47); MONOCYTES PERCENT AUTO 10 % (4-13); Mean Corpuscular HGB Conc 31.5 g/dL (31.5-36.5); Mean Corpuscular Volume 86 fL (80-100); NEUTROPHILS ABSOLUTE AUTO 6.95 K/mm3 (1.96-9.15); NEUTROPHILS PERCENT AUTO 72 % (41-73); NRBC ABSOLUTE 0.00 K/mm3 (0.00-0.02); NRBC Auto 0.0 /100 WBC (0.0-0.2); Platelet Count 271 K/mm3 (150-400); RDW Coefficient Variation 14.5 % (11.7-14.2); RDW Standard Deviation 46.4 fL (35.1-46.3)
[2025-08-09 07:00] LABS: Alanine Aminotransfer (ALT/SGP 85.0 U/L (12-78); Albumin, Blood 2.3 g/dL (3.4-5.0); Albumin/Globulin Ratio 0.5 (0.8-1.8); Anion Gap 11.0 mmol/L (3-11); Aspartate Aminotrans (AST/SGOT 92.0 U/L (12-37); Bilirubin, Total 0.6 mg/dL (0.1-1.0); Blood Urea Nitrogen 40.0 mg/dL (8-24); CO2, Blood 24.0 mmol/L (21-32); Calcium, Blood 8.7 mg/dL (8.5-10.1); Chloride, Blood 107.0 mmol/L (98-108); Creatinine, Blood 1.74 mg/dL (0.60-1.20); Globulin, Blood 4.7 g/dL (2.2-4.0); Glucose, Blood 108.0 mg/dL (70-99); Potassium, Blood 5.1 mmol/L (3.5-5.5); Sodium, Blood 137.0 mmol/L (136-145); Total Protein, Blood 7.0 g/dL (6.4-8.2)
[2025-08-09 07:29] VITALS: BP 176/86
[2025-08-09 15:27] VITALS: BP 166/91
[2025-08-09] MEDS ORDERED: BENADRYL25 MG PO (15:27)
[2025-08-09] MEDS ORDERED: ADRENALIN1 MG/1 M1 IM (15:30)
[2025-08-09] MEDS ORDERED: VSL#3 112.5B1 EACH PO (15:32)
[2025-08-09] MEDS ORDERED: AMOCLA875 PO (15:33)
--- NOTE | 2025-08-09 16:14 | NUR ---
DISCHARGE PT DISCHARGED HOME TO [facility]. IV REMOVED AND SITE APPEARS WNL. DISCHARGE PACKET FAXED TO [facility] BY [facility]ORDIN[facility]OR. THIS RN CONTACTED [facility] AND SPOKE WITH DAMI, WHO [facility]. FACILITY RN DID NOT ANSWER. RN LEFT VOICEMAIL REQUESTING CALL BACK TO PROVIDE REPORT. NO CALLBACK PRIOR TO PT DISCHARGING. DISCHARGE PACKET SENT WITH PT. RN REVIEWED c PT BUT PT DOES NOT MANAGE HIS MEDICATIONS OR CARE. PT ATTENDS CLEAN AND DRY, AND CLOTHES PLACED ON PT. PT ABLE TO STAND AND PIVOT TO FOR TRANSPORT. TRANSPORTED BY [facility].
== END 2025-08-09 16:15 | disposition home or self-care (01) | DRG 872 ==
LOC: ER 19:37 → MEDS 21:28 → ENPENDDIS 08-09 13:36 → MEDS 08-09 16:15
PROVIDERS: Emergency Medicine; Student in an Organized Health Care Education/Training Program; ADMIT Internal Medicine
DX: A41.51 Sepsis due to Escherichia coli [E. coli] (principal); N17.9 Acute kidney failure, unspecified; Z16.12 Extended spectrum beta lactamase (ESBL) resistance; I48.20 Chronic atrial fibrillation, unspecified; I69.354 Hemiplegia and hemiparesis following cerebral infarction affecting left non-dominant side; N39.0 Urinary tract infection, site not specified; I12.9 Hypertensive chronic kidney disease with stage 1 through stage 4 chronic kidney disease, or unspecified chronic kidney disease; E78.5 Hyperlipidemia, unspecified; D63.1 Anemia in chronic kidney disease; E11.22 Type 2 diabetes mellitus with diabetic chronic kidney disease; E11.40 Type 2 diabetes mellitus with diabetic neuropathy, unspecified; N18.2 Chronic kidney disease, stage 2 (mild); E86.0 Dehydration; Z88.0 Allergy status to penicillin; Z79.84 Long term (current) use of oral hypoglycemic drugs; Z88.2 Allergy status to sulfonamides; Z79.82 Long term (current) use of aspirin; Z95.1 Presence of aortocoronary bypass graft; Z95.3 Presence of xenogenic heart valve; Z87.440 Personal history of urinary (tract) infections
CPT/HCPCS: 36415; 71046; 76770; 80053; 81001; 82947; 83605; 83880; 85025; 85610; 87077; 87086; 87186; 92610; 93005; 93010; 94762; 96374; 97161; 97530; 99285-25; A9270; J0295; J0696; J1644; J7030